=== PATIENT | male | born 2005 | race Caucasian/White ===

== ENCOUNTER 2024-10-25 13:37 | Outpatient (AMB) | payer OTHER, SELFPAY ==
--- NOTE | 2024-10-25 14:03 | A.OFFPC_ITS ---
Vital Signs 10/25/24 14:04 Height 5 ft 9.5 in Weight 257 lb BMI 37.4 BP 120/68 Blood Pressure Location Lt brachial Position Sitting Pulse 76 Pulse Source Pulse Oximeter Temp 97.3 F Temp Source Temporal Artery Scan Pulse Oximetry (%) 97 Oxygen Delivery Method Room Air Intake Visit Reasons: Establish Care Intake Note: Patient is a new patient here to establish care. Transferring care from [facility]. Medical records have been requested and have been received. Switch Crew Supervisor Required: No Accompanied by: Self / Same As Patient Allergies No Known Allergies Allergy (Unverified 10/25/24 14:16) Medication List - Last Reconciled 10/25/24 by KIRAN Vasquez budesonide-formoterol 80-4.5 mcg/actuation (Symbicort) inhalation Tobacco use date assessed: 10/25/24 Dental Screening Dental Screen Date: 10/25/24 Did you have a dental visit in the last 12 months?: No Did you have a dental problem in the last 6 months where you did not have access to dental care?: No HPI Establish Care HPI Details Patient is a 19-year-old male presenting to establish care Previous PCP:[facility] Last visit: over a year ago Last PE: same Specialist: no OBGYN:n/a Past medical history: asthma, ALBERTO Medications: Family HX: Problem: Reports that he had sleep study test done and was dx with ALBERTO:Reports that they took the machine back because he was not using it Per patient he was unable to wear the mask, as he felt like he was be suffocated. The patient reports that he could fall asleep, but could not stay asleep Asthma: reports that this is uncontrolled because he is still having symptoms nightly symptoms occasional during the day with coughing spelss that resolves with resting reports that he was placed and symbicort and was told to take 2 puffs every hours as needed PFSH Medical History ALBERTO (obstructive sleep apnea) Asthma Surgical History No pertinent past surgical history Family History Mother Arthritis Father High cholesterol Social History (Updated 10/25/24 @ 14:12 by Gregoria Chahal [facility]) Household Members Other:: Parents and two sisters Housing: House Alcohol intake: current Alcohol intake frequency: a few times a month Patient Tobacco Use Status: Never used Tobacco e-Cigarette/Vaping Use: Never Used Substance Use Type: Marijuana service: No Current occupational status: employed 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 1. Little interest or pleasure in doing things: not at all 2. Feeling down, depressed, or hopeless: not at all 3. Trouble falling or staying asleep, or sleeping too much: several days 4. Feeling tired or having little energy: several days 5. Poor appetite or overeating: not at all 6. Feeling bad about yourself - or that you are a failure or have let yourself or your family down: not at all 7. Trouble concentrating on things, such as reading the newspaper or watching television: not at all 8. Moving or speaking so slowly that other people could have noticed. Or the opposite - being so fidgety or restless that you have been moving around a lot more than usual: not at all 9. Thoughts that you would be better off or of hurting yourself in some way: not at all Total score: 2 Depression Screening Interpretation: Negative Depression Screening Done: Yes 95178 - PHQ-9 Billing: Yes Source: Developed by Drs. Jah Leyva, Lilly Tran, Won Murphy and colleagues, with an educational juani from [employer]. Thrive Questionnaire Date Thrive assessed: 10/25/24 I am a: Patient What is your living situation today?: I have a steady place to live Within the past 12 months, did the food you bought not last and you didn't have the money to get more?: Never true Within the past 12 months, did you worry whether your food would run out before you got money to buy more?: Never true Do you have trouble paying for medicines?: No Do you have trouble getting transportation to medical appointments?: No Do you have trouble paying your heating and electricity bill?: No Do you have trouble taking care of your child, family member or friend?: No Do you have trouble with day-to-day activities such as bathing, preparing meals, shopping, managing finances, etc.?: No Are you currently unemployed and looking for a job?: No Are you interested in more education?: No Please select the resources that you would like help with: None Currently or been in a relationship where the following occur: No concerns reported THRIVE Score: 0 AUDIT C Alcohol Use Questionnaire (AUDIT-C) 1. How often do you have a drink containing alcohol?: 2-4 times a month 2. How many drinks containing alcohol do you have on a typical day when you are drinking?: 3 or 4 3. How often do you have six or more drinks on one occasion?: Less than monthly Total Score: 4 SHADI-7 AMB Questionnaire SHADI-7 Date SHADI - 7 assessed: 10/25/24 Feeling nervous, anxious, or on edge: 0 = Not at all Not being able to stop or control worryin = Not at all Worrying too much about different things: 0 = Not at all Trouble relaxin = Not at all Being so restless that it is hard to sit still: 0 = Not at all Becoming easily annoyed or irritable: 0 = Not at all Feeling afraid as if something awful might happen: 0 = Not at all Total SHADI-7 score (0-4 normal; 5-9 mild; 10-14 moderate; 15-21 severe): 0 Source: Developed by Drs. Jah Leyva, Lilly Tran, Won Murphy and colleagues, with an educational juani from [employer]. SHADI-7 Assessment Billing SHADI-7 Assessment Tool: SHADI-7 Assessment 62264 Review of Systems Const Denies headache(s) Eyes Denies loss of vision ENT Denies vertigo, Denies dizziness, Denies headache(s) and Denies sore throat Card Denies chest pain, Denies leg edema, Denies lightheadedness and Reports dyspnea (Intermittently) Resp Denies cough, Denies hemoptysis, Reports dyspnea (Intermittently) and Reports wheezing (Intermittently) GI Denies abdominal pain, Denies melena, Denies constipation, Denies diarrhea and Denies vomiting Denies dysuria, Denies urinary frequency and Denies urinary urgency Musc Denies arthralgias, Denies joint swelling, Denies numbness and Denies tingling Neuro Denies Abnormal speech present, Denies behavioral changes, Denies vertigo, Denies dizziness, Denies headache(s), Denies loss of vision, Denies memory loss, Denies numbness and Denies tingling Psych Denies anxiety, Denies behavioral changes, Denies depression, Denies memory loss and Denies panic attacks Rashaun/Lymph Denies easy bleeding and Denies easy bruising Aller/Immun Reports wheezing (Intermittently) Physical exam (Primary Care) Vital Signs: Last Vital Signs Temp 97.3 F 10/25/24 14:04 Pulse 76 10/25/24 14:04 BP 120/68 10/25/24 14:04 Pulse Ox 97 10/25/24 14:04 Oxygen Delivery Method Room Air 10/25/24 14:04 BMI result Body Mass Index 37.4 Tobacco/Smoking Status: Tobacco use Status Tobacco use date assessed 10/25/24 10/25/24 14:14 Patient Tobacco Use Status Never used Tobacco 10/25/24 14:14 e-Cigarette/Vaping Use Never Used 10/25/24 14:14 PHQ-9: PHQ-9 Score PHQ-9: Total score 2 10/25/24 14:23 Depression Screening Interpretation: Negative Thrive Assessment: Date of Thrive Assessment Date Thrive assessed 10/25/24 10/25/24 14:14 Currently or been in a relationship where the following occur: No concerns reported Const General: healthy appearing, no acute distress, alert and awake Nutritional Appearance: well nourished Orientation/consciousness: oriented to person, oriented to place and oriented to time [facility] Ears: TM's normal bilaterally General nose exam: Abnormal mucous membranes and turbinates present boggy and erythematous and Nasal discharge present purulent on the right Mouth: Normal oral and palatal mucosa present Throat: Yes posterior oropharynx normal Eyes Conjunctivae: conjunctivae normal Sclerae: sclerae normal Pupils: Equal, round and reactive pupils present Neck Neck: Yes no lymphadenopathy and Yes no JVD Thyroid: Thyroid normal Carotids: no bruits Resp Effort & Inspection: normal respiratory effort and not tachypneic Auscultation: no crackles, no rales, no rhonchi and no wheezes Cardio Rate: regular rate Rhythm: regular rhythm Heart sounds: no murmurs and normal S1 and S2 GI Palpation (GI): Soft to palpation, nontender, no hepatomegaly and no splenomegaly Auscultation: normal bowel sounds Skin General skin exam: no rashes or lesions noted and dry skin Neuro General: oriented to person, oriented to place and oriented to time Cranial nerves: Yes Equal, round and reactive pupils present Speech: No Abnormal speech present Gait exam (Neuro): Normal gait present Motor exam (neuro): no tremor noted Extrem Right upper extremity: full ROM Left upper extremity: full ROM Right lower extremity: full ROM; no edema Left lower extremity: full ROM; no edema Psych Mental Status: mental status grossly normal Speech and movement: Normal speech and movement present Affect: normal affect Attitude: cooperative Thought process: Normal thought process present Coding Level of Care Code New Pt Level 4 (10880) Diagnoses ALBERTO (obstructive sleep apnea) G47.33 Moderate persistent asthma, unspecified whether complicated J45.40 Asthma severity: moderate Asthma persistence: persistent Asthma complication type: unspecified Rhinosinusitis J32.9 Nasal congestion R09.81 Additional Codes SHADI-7 Assessment Billing - SHADI-7 Assessment Tool: SHADI-7 Assessment 10398 ([id number]) PHQ-9 - 70637 - PHQ-9 Billing: Yes ([id number]) Time Spent (min) 42 Assessment & Plan Assessment & Plan (1) ALBERTO (obstructive sleep apnea): Code(s): G47.33 - Obstructive sleep apnea (adult) (pediatric) Category: Medical Plan: Reports that he was diagnosed and but could not tolerate wearing the mask and his machine was taken away. Will refer the patient to pulmonology to further evaluate (2) Asthma: Code(s): J45.909 - Unspecified asthma, uncomplicated Category: Medical Qualifiers: Asthma severity: moderate Asthma persistence: persistent Asthma complication type: unspecified Qualified Code(s): J45.40 - Moderate persistent asthma, uncomplicated Plan: The patient is currently on symbicort 2 puffs every 4 hours as needed. Albuterol sulfate 90 mcg/actuation 2 puffs 4-6 hours p.r.n. was ordered in order to see if the patient could cut down the use of the symbicort. Will refer the patient to pulmonology (3) Rhinosinusitis: Code(s): J32.9 - Chronic sinusitis, unspecified Category: Medical Plan: Augmentin 1 tab b.i.d. times 10 days and fluticasone propionate 50 mcg/actuation 2 sprays intranasally daily p.r.n. patient to contact office his symptoms isn't getting better or worsens (4) Nasal congestion: Code(s): R09.81 - Nasal congestion Category: Medical Plan: Fluticasone propionate 50 mcg/actuation 2 sprays intranasally daily p.r.n. ordered. Discussed with the patient and that he could use an antihistamine OTC like Zyrtec or Claritin daily as needed Orders: Orders 2 Complete Blood Count Auto Diff 10/25/24 Z00.00 - Encounter for general adult medical examination without abnormal findings Lipid Panel 10/25/24 Z. - Encounter for general adult medical examination without abnormal findings Vitamin D 25-OH Total 10/25/24 Z. - Encounter for general adult medical examination without abnormal findings Glucose Fasting 10/25/24 Z00. - Encounter for general adult medical examination without abnormal findings Comprehensive [place]. Panel Fast 10/25/24 Z00. - Encounter for general adult medical examination without abnormal findings UA CC w/rflx Micro + Cult 10/25/24 Z00.00 - Encounter for general adult medical examination without abnormal findings TSH reflex Free T4 10/25/24 Z00.00 - Encounter for general adult medical examination without abnormal findings Medications: New albuterol sulfate 90 mcg/actuation (Ventolin HFA) 2 puffs inhalation Q4-6H PRN 8.5 grams 3RF shortness of breath or wheezing J45.909 - Unspecified asthma, uncomplicated fluticasone propionate 50 mcg/actuation administer into each nostril 2 sprays intranasal DAILY PRN 16 grams 3RF allergy symptoms R09.81 - Nasal congestion amoxicillin-pot clavulanate 875-125 mg 1 tab PO BID 20 tabs 0RF 10 days J32.9 - Chronic sinusitis, unspecified
[2024-10-25 14:04] VITALS: BP 120/68; PULSE 76; TEMP 36.3; O2SAT 97; BMI 37.4
== END 2024-10-25 14:50 | disposition home or self-care (01) ==
LOC: HO.HMCH 13:38
PROVIDERS: PCP Pediatrics
DX: G47.33 Obstructive sleep apnea (adult) (pediatric) (principal); J45.40 Moderate persistent asthma, uncomplicated; J32.9 Chronic sinusitis, unspecified; R09.81 Nasal congestion

== ENCOUNTER → 2024-10-25 13:37 | Outpatient (BNVA) | payer OTHER, SELFPAY | PROVIDERS: PCP Pediatrics | DX: J45.40 Moderate persistent asthma, uncomplicated (principal); G47.33 Obstructive sleep apnea (adult) (pediatric); J32.9 Chronic sinusitis, unspecified; R09.81 Nasal congestion | CPT/HCPCS: 96127; 99202 ==

== ENCOUNTER 2024-12-07 07:51 | Outpatient (REF) | payer OTHER, SELFPAY ==
--- OUTSIDE RECORDS SUMMARY | 2024-12-07 07:57 | XMS_ITS | Encounter Summary ---
Author Organization [facility] Address [address] [place] [address] Phone Care Team Providers Care Dental Appliance Repairer Name Role Phone Provider, Ravindra LINDSAY Primary Care Provider Encounter Details Date Type Department Care Team (Late st Contact Info) Description 08/10/2016 Documentation [facility] [place] [address] [place], [place] [id number] Family Medicine, Physician [address] [place] [address] Social History Tobacco Use Types Packs/Day Years Used Date Smoking Tobacco: Never Assessed Sex and Gender Information Value Date Recorded Sex Assigned at Male 11/12/2019 10:41 AM EDT Legal Sex Male 5:04 PM EDT Gender Identity Male 11/12/2019 10:41 AM EDT Sexual Orientation Straight 11/12/2019 10 :41 AM EDT documented as of this encounter Plan of Treatment Not on file documented as of this encounter Visit Diagnoses Not on filedocumented in this encounter Care Teams Dental Appliance Repairer Relationship Specialty Start Date End Date Provider, MD Ravindra [address] [place] [phone] PCP - General Pediatrics 01/26/24 07/23/24 documented as of this encounter
--- OUTSIDE RECORDS SUMMARY | 2024-12-07 07:57 | XMS_ITS | Encounter Summary ---
Author Organization [facility] Address [address] [place] [address] Phone Care Team Providers Care Truck Service Technician Name Role Phone Provider, Ravindra LINDSAY Primary Care Provider [phone] Encounter Details Date Type Department Care Team (Late st Contact Info) Description 07/26/2016 Documentation [facility] [place] [address] [place], [place] [phone] Family Medicine, Physician [address] [place] [address] Social History Tobacco Use Types Packs/Day Years [...] on filedocumented in this encounter Care Teams Truck Service Technician Relationship Specialty Start Date End Date Provider, MD Ravindra [address] [place] [phone] PCP - General Pediatrics 01/26/24 07/23/24 documented as of this encounter
--- OUTSIDE RECORDS SUMMARY | 2024-12-07 07:57 | XMS_ITS | Encounter Summary ---
Author Organization [facility] Address [address] [place] [address] Phone Care Team Providers Care Rug Cleaner Name Role Phone Provider, Ravindra LINDSAY Primary Care Provider [phone] Encounter Details Date Type Department Care Team (Late st Contact Info) Description 09/01/2016 [place] [facility] [place] [address] [place], [place] [id number] Family Medicine, Physician [address] [place] [address] Social History Tobacco Use Types Packs/Day Years [...] on filedocumented in this encounter Care Teams Rug Cleaner Relationship Specialty Start Date End Date Provider, MD Ravindra [address] [place] [phone] PCP - General Pediatrics 01/26/24 07/23/24 documented as of this encounter
--- OUTSIDE RECORDS SUMMARY | 2024-12-07 07:57 | XMS_ITS | Encounter Summary ---
Author Organization [facility] Address [address] [place] [address] Phone Care Team Providers Care Elevator Examiner And Adjuster Name Role Phone Provider, Ravindra LINDSAY Primary Care Provider [phone] Encounter Details Date Type Department Care Team (Late st Contact Info) Description 03/23/2017 Conversion Encounter [facility] [address] [place] [address] Social History Tobacco Use Types Packs/Day Years [...] on filedocumented in this encounter Care Teams Elevator Examiner And Adjuster Relationship Specialty Start Date End Date Provider, MD Ravindra [address] [place] [phone] PCP - General Pediatrics 01/26/24 07/23/24 documented as of this encounter
--- OUTSIDE RECORDS SUMMARY | 2024-12-07 07:57 | XMS_ITS | Encounter Summary ---
Author Organization [facility] Address [address] [place] [address] Phone Care Team Providers Care Merchant Tailor Name Role Phone Provider, Ravindra LINDSAY Primary Care Provider [phone] Encounter Details Date Type Department Care Team (Late st Contact Info) Description 07/09/2015 Documentation [facility] Family Medicine [address] [place], [place] [phone] Family Medicine, Physician [address] [place] [address] Social History Tobacco Use Types Packs/Day Years [...] on filedocumented in this encounter Care Teams Merchant Tailor Relationship Specialty Start Date End Date Provider, MD Ravindra [address] [place] [phone] PCP - General Pediatrics 01/26/24 07/23/24 documented as of this encounter
--- OUTSIDE RECORDS SUMMARY | 2024-12-07 07:57 | XMS_ITS | Encounter Summary ---
Author Organization [facility] Address [address] [place] [address] Phone Care Team Providers Care Reception Specialist Name Role Phone Provider, Ravindra LINDSAY Primary Care Provider [phone] Encounter Details Date Type Department Care Team (Late st Contact Info) Description 12/25/2009 [place]ation [facility] [place] [address] [place], [place] [phone] Family Medicine, Physician [address] [place] [address] Social History Tobacco Use Types Packs/Day Years [...] on filedocumented in this encounter Care Teams Reception Specialist Relationship Specialty Start Date End Date Provider, MD Ravindra [address] [place] [phone] PCP - General Pediatrics 01/26/24 07/23/24 documented as of this encounter
--- OUTSIDE RECORDS SUMMARY | 2024-12-07 07:57 | XMS_ITS | Clinical Summary ---
Author Organization [facility] Address [address] [place] [address] Phone Care Team Providers Care Battery Charger Tester Name Role Phone Unavailable Primary Care Provider Unavailabl e Allergies No known active allergies Medications loratadine 10 MG tabletIndications:Seas onal and perennial allergic rhinoconjunctivitis of both eyes TAKE 1 TABLET BY MOUTH EVERY DAY 30 tablet 3 04/25/20 22 Active Additional Information Patient not taking.Reported on 08/02/2023 Spacer/Aero-Holding Chambers (AeroChamber Plus) inhalerIndications:Mil d intermittent asthma with acute exacerbation Use with metered dose inhaler as directed. 1 each 1 07/09/20 22 Active fluticasone 50 MCG/ACT nasal sprayIndications:Seaso nal and perennial allergic rhinoconjunctivitis of both eyes Administer 1 spray into each nostril daily. 1 mL 5 02/17/20 23 Active Additional Information Patient not taking.Reported on 07/11/2023 albuterol HFA 108 (90 Base) MCG/ACT inhalerIndications:Mil d intermittent asthma with acute exacerbation Inhale 2 puffs every 4 (four) hours as needed for wheezing or shortness of breath. 1 Units 04/06/20 23 Active Additional Information Patient not taking.Reported on 07/11/2023 montelukast (Singulair) 10 MG tabletIndications:Mode rate persistent asthma without complication Take 1 tablet (10 mg total) by mouth nightly. 30 tablet 3 05/10/20 23 Active cholecalciferol 50 MCG (2000 UT) capsuleIndications:Vit slaughter D deficiency TAKE 1 CAPSULE BY MOUTH DAILY. 90 capsule 05/23/20 23 Active Symbicort 80-4.5 MCG/ACT inhalerIndications:Mod erate persistent asthma without complication INHALE 2 PUFFS TWICE A DAY RINSE MOUTH WITH WATER AFTER USE. DO NOT SWALLOW 1 Units 3 05/23/20 24 Active Active Problems Problem Noted Date Diagnosed Date Obstructive sleep apnea 12/27/2023 Overview (12/27/2023): Seen by sleep med - abnormal sleep study, started on CPAP 12/28. Seasonal and perennial aller gic rhinoconjunctivitis of both eyes 11/12/2021 Atopic dermatitis 10/16/2017 Overview (11/12/2019): No recent issues with eczema, has topical prep at home to use if Needed. Moderate persistent asthma without complication 10/06/2016 Overview (11/12/2019): Compliant with Flovent. No recent need for albuterol Assessment & Plan (01/31/2022 2:07 PM EDT): Occ need for albuterol Assessment & Plan (11/12/2021 7:54 PM EDT): Off Flovent for long time but with regular nocturnal symptoms in past month with spring allergy symptoms, so resume Flovent for now while antihistamine rx initiated. F/up with PCP Assessment & Plan (09/17/2017 9:40 AM EST): Still with some asthma symptoms, and need steroid, should be on controller, will start Assessment & Plan (09/11/2017 12:43 PM EST): Jonathan has a history of asthma but has not needed in meds in over 2 years. He is here today with his sister - both with URI, cough and wheezing. Jonathan has not needed albuterol in a few years. He used his sisters via the [employer] machine last night. He did not sleep well 2nd to cough. Albuterol given in the office x 2 was helpful. PRed 60 mg given here and to be given daily for 4 more days. Follow up with Dr Lam in 2-3 days, sooner as needed. Childhood obesity 02/16/2010 Assessment & Plan (09/17/2017 9:42 AM EST): May make asthma worse. Discuss with Dr. Lam at check up Resolved Problems Problem Noted Date Diagnosed Date Resolved Date Right-sided chest wall pain 11/12/2021 01/31/2022 Overview (11/12/2021): suspect possible hairline rib fracture- suggest ibuprofen 800mg with food BID and sleep on other side or with pillow support Personal history of COVID-19 11/12/2021 02/16/2023 Overview (11/12/2021): Mild illness 08/2021- full recovery Encounters Date Type Department Care Team Description 10/10/2024 Telephone [facility] [address] [place], [place] [id number] Jazmine Mendes MD Medical Records 09/29/2024 Refill [facility] [address] [place], [place] [phone] So Napier MD Moderate persistent asthma without complication from Last 3 Months Immunizations Immunization Administration Dates Next Due COVID-19 Pfizer, alireza-sucros e, 12+ years 01/31/2022 DTaP 5 12/27/2007, 5,01/13/2004,11/11,2003 H1N1 08/04/2009,06/16/2009 HPV Vaccine 9 Valent 03/24/2015 HPV, Quadrivalent 11/21/2014,10/03/2014 Hep A, ped/adol 10/03/2014,03/14/2011 Hep B, ped/adol 01/13/2004,2003,2003 Hib (PRP-T) 10/19/2004,2003,2003 IPV 01/12/2009, 4,2003,08/30 Influenza Split 06/06/2013, 2,05/02/2011,04/23 Influenza, injectable, quadrivalent 07/08/2015 Influenza, injectable, quadr ivalent, preservative free 04/19/2023,08/03/2022,04/29/2021,04/24,04/10/2019,06/12/2018,05/29/2017 ,04/18/2016,04/21/2014 Influenza, injectable, trivalent 04/27/2009,06/08,05/30/2006 MMR 12/27/2007,07/05/2004 Meningococcal Conj (Menactra) MCV4P 11/12/2019,0 03/24/2015 Pneumococcal Conjugate 10/19/2004,2003,2003,08/29 Tdap 10/03/2014 Varicella 01/06/2009,07/05/2004 Family History Medical History Relation Name Comments Hyperlipidemia Father jonathan Obesity Father jonathan Diabetes Maternal Grandfather Hyperlipidemia Maternal Grandfather Hypertension Maternal Grandfather Anxiety disorder Mother zoriada Asthma Mother zoriada Depression Mother zoriada Obesity Mother zoriada Thyroid disease Other 1 Asthma Sister 1 davida Asthma Sister 2 norangeli Relation Name Status Comments Father jonathan Alive Father: Hyperli pidemia Maternal Grandfather Mother sharonridenita Alive Mother: Asthma Other 1 Close relative: Obesity Other 2 Family history of Diabetes mellitus, Family history of Migraines Sister 1 davida Alive Sister: Alive a nd well, Asthma Sister 2 norangeli Alive Social History Tobacco Use Types Packs/Day Years Used Date Smoking Tobacco: Never Smokeless Tobacco: Never Tobacco Cessation:Counseling Given: Yes Alcohol Use Standard Drinks/Week Comments Never 0 (1 standard drink = 0.6 oz pur e alcohol) rare ETOH in the past. Hunger/Food Answer Date Recorded In the last 12 months, did y ou or your family ever eat less than you felt you should because there wasn't enough money for food? No 02/15/2023 Stable Housing Answer Date Recorded Are you worried that in the next 2 months you may not have stable housing? No 02/15/2023 Transportation Concerns Answer Date Rec orded In the last 12 months, have you or your family ever had to go without healthcare because you didn't have a way to get there? No 02/15/2023 Hazards in Home Answer Date Recorded Think about the place you li ve. Do you have problems with any of the following? Pests (mice or roaches), mold, no/not working smoke detectors, water leaks, no window guards. No 2022 Financing Utilities Answer Date Recorde d In the last 12 months, has t he electric, gas, oil, or water company threatened to shut off your services in your home? No 02/15/2023 Safety at Home Answer Date Recorded Are you or your family worried about feeling saf e in your home? No 02/15/2023 Outside Support Answer Date Recorded Do you feel that you need mo re support from other people or programs to help you care for yourself or your family? No 02/15/2023 Understanding Health Concerns Answer Da te Recorded Do you need help understandi ng your or your child's healthcare needs (diagnosis, medications, plan, etc.)? No 02/15/2023 Financing Health Concerns Answer Date R ecorded In the last 12 months, was t here a time when your child needed to see a doctor or get medications or supplies but could not because of cost? No 02/15/2023 Missing School or Work Answer Date Jeffy rded Did you or your child miss s chool or work because of a health problem that could have been avoided? No 02/15/2023 Sex and Gender Information Value Date Recorded Sex Assigned at Male 11/12/2019 10:41 AM EDT Legal Sex Male 5:04 PM EDT Gender Identity Male 11/12/2019 10:41 AM EDT Sexual Orientation Straight 11/12/2019 10 :41 AM EDT Last Filed Vital Signs Vital Sign Reading Time Taken Comments Blood Pressure 137/88 08/02/2023 2:44 PM EST Pulse 98 08/02/2023 2:44 PM EST Temperature 36.7 ??C (98.1 ??F) 08/02/2023 2:44 PM ES T Respiratory Rate 24 08/14/2018 9:24 AM EST Oxygen Saturation 97% 11/12/2021 4:34 PM EDT Inhaled Oxygen Concentration - - Weight 120 kg (263 lb 12.8 oz) 08/02/2023 2:44 P M EST Height 175.3 cm (5' 9 ) 02/16/2023 10:34 AM EDT Body Mass Index 38.96 02/16/2023 10:34 AM EDT Plan of Treatment Health Maintenance Due Date Last Done Comments Men B Vaccine (1 of 2 - Standard) 2019 Influenza Vaccines (#1) 2024 04/19/20, 08/03/2022, 04/29/2021, Additional history exists COVID-19 Vaccine (4 - 2023-2 5 season) 2024 01/31/2022, 12/29/2020, 12/08/2020 DTaP,Tdap,and Td Vaccines (7 - Td or Tdap) 10/03/2024 10/03/2014, 12/27/2007, 10/19/2004, Additional history exists Hepatitis B Vaccines Completed 01/13/2004, 2003, 2003 HIB Vaccines Completed 10/19/2004, 02/2004, 2003 Pneumococcal Vaccine Completed 10/19/2004, 01/13/2004, 2003, Additional history exists MMR Vaccines Completed 12/27/2007, 07/05/2004 Varicella Vaccines Completed 01/06/2009, 07/05/2004 IPV Vaccines Completed 01/12/2009, 03/2004, 2003, Additional history exists Hepatitis A Vaccines Completed 10/03/2014, 03/14/20 11 HPV Vaccines Completed 03/24/2015, 11/05, 10/03/2014 Meningococcal Vaccine Completed 11/12/2019, [address] [place] [address] NON PCC Member Subscriber Plan / Payer (Ef fective 2017-Present) Name:Jonathan Pappas Relation to Subscriber:Self Name:Jonathan Pappas Payer ID:Not on file Group ID:Not on file Type:Medicaid Address: [address] [facility] [place] Address: [facility] [address] [place] [address]
--- OUTSIDE RECORDS SUMMARY | 2024-12-07 07:57 | XMS_ITS | Encounter Summary ---
Author Organization [facility] Address [address] [place] [address] Phone Care Team Providers Care Councilor Name Role Phone Provider, Ravindra LINDSAY Primary Care Provider [phone] Reason for Visit * Reason Onset Date Comments Med Refill 12/21/2020 Encounter Details Date Type Department Care Team (Late st Contact Info) Description 12/21/2020 Refill [facility] [address] [place] [address] Brandon Lam MD [address] [place] [address] Mild persistent asthma without complication Social History Tobacco Use Types Packs/Day Years Used Date Smoking Tobacco: Never Smokeless Tobacco: Never Alcohol Use Standard Drinks/Week Comments Never 0 (1 standard drink = 0.6 oz pur e alcohol) Hunger/Food Answer Date Recorded In the last 12 months, did y ou or your family ever eat less than you felt you should because there wasn't enough money for food? No 11/17/2020 Stable Housing Answer Date Recorded Are you worried that in the next 2 months you may not have stable housing? No 11/17/2020 Transportation Concerns Answer Date Rec orded In the last 12 months, have you or your family ever had to go without healthcare because you didn't have a way to get there? No 11/17/2020 Hazards in Home Answer Date Recorded Think about the place you li ve. Do you have problems with any of the following? Pests (mice or roaches), mold, no/not working smoke detectors, water leaks, no window guards. No 2020 Financing Utilities Answer Date Recorde d In the last 12 months, has t he electric, gas, oil, or water company threatened to shut off your services in your home? No 11/17/2020 Safety at Home Answer Date Recorded Are you or your family worried about feeling saf e in your home? No 11/17/2020 Outside Support Answer Date Recorded Do you feel that you need mo re support from other people or programs to help you care for yourself or your family? No 11/17/2020 Understanding Health Concerns Answer Da te Recorded Do you need help understandi ng your or your child's healthcare needs (diagnosis, medications, plan, etc.)? No 11/17/2020 Financing Health Concerns Answer Date R ecorded In the last 12 months, was t here a time when your child needed to see a doctor or get medications or supplies but could not because of cost? No 11/17/2020 Missing School or Work Answer Date Jeffy rded Did you or your child miss s chool or work because of a health problem that could have been avoided? No 11/17/2020 Sex and Gender Information Value Date Recorded Sex Assigned at Male 11/12/2019 10:41 AM EDT Legal Sex Male 5:04 PM EDT Gender Identity Male 11/12/2019 10:41 AM EDT Sexual Orientation Straight 11/12/2019 10 :41 AM EDT documented as of this encounter Plan of Treatment Not on file documented as of this encounter Visit Diagnoses Diagnosis Mild persistent asthma without complication documented in this encounter Care Teams Councilor Relationship Specialty Start Date End Date Provider, MD Ravindra [address] [place] [phone] PCP - General Pediatrics 01/26/24 07/23/24 documented as of this encounter
--- OUTSIDE RECORDS SUMMARY | 2024-12-07 07:57 | XMS_ITS | Encounter Summary ---
Author Organization [facility] Address [address] [place] [address] Phone Care Team Providers Care Plastic Joint Maker Name Role Phone Provider, Ravindra LINDSAY Primary Care Provider [phone] Encounter Details Date Type Department Care Team (Late st Contact Info) Description 05/14/2013 Documentation [facility] [place] Family Medicine [address] [place], [place] [phone] Family Medicine, Physician [address] [place] [address] Social History Tobacco Use Types Packs/Day Years [...] on filedocumented in this encounter Care Teams Plastic Joint Maker Relationship Specialty Start Date End Date Provider, MD Ravindra [address] [place] [phone] PCP - General Pediatrics 01/26/24 07/23/24 documented as of this encounter
--- OUTSIDE RECORDS SUMMARY | 2024-12-07 07:57 | XMS_ITS | Encounter Summary ---
Author Organization [facility] Address [address] [place] [address] Phone Care Team Providers Care Firing Pin Gauger Name Role Phone Provider, Ravindra LINDSAY Primary Care Provider [phone] Reason for Visit * Reason Comments Med Refill Encounter Details Date Type Department Care Team (Late st Contact Info) Description 09/10/2018 Refill [facility] [place] [address] [place] [address] Brandon Lam MD [address] [place] [address] Mild intermittent asthma with acute exacerbation Social History Tobacco Use Types Packs/Day Years Used Date Smoking Tobacco: Never Smokeless Tobacco: Never Alcohol Use Standard Drinks/Week Comments No 0 (1 standard drink = 0.6 oz pur e alcohol) Sex and Gender Information Value Date Recorded Sex Assigned at Male 11/12/2019 10:41 AM EDT Legal Sex Male 5:04 PM EDT Gender Identity Male 11/12/2019 10:41 AM EDT Sexual Orientation Straight 11/12/2019 10 :41 AM EDT documented as of this encounter Miscellaneous Notes * Telephone Encounter - Ava Guillory LPN - 09/10/2018 11:31 AM EST Refill request for Proair- I left a message for mom to call to see if refill needed. It was just ordered less than a month ago./MAGGIE documented in this encounter Plan of Treatment Not on file documented as of this encounter Visit Diagnoses Diagnosis Mild intermittent asthma with acute exacerbation documented in this encounter Care Teams Firing Pin Gauger Relationship Specialty Start Date End Date Provider, MD Ravindra [address] [place] [phone] PCP - General Pediatrics 01/26/24 07/23/24 documented as of this encounter
--- OUTSIDE RECORDS SUMMARY | 2024-12-07 07:57 | XMS_ITS | Encounter Summary ---
Author Organization [facility] Address [address] [place] [address] Phone Care Team Providers Care Clay Miner Name Role Phone Provider, Ravindra LINDSAY Primary Care Provider [phone] Encounter Details Date Type Department Care Team (Late st Contact Info) Description 05/14/2013 Documentation [facility] [place] [address] [place], [place] [phone] Family Medicine, Physician [address] [place] [address] Social History Tobacco Use Types Packs/Day Years [...] on filedocumented in this encounter Care Teams Clay Miner Relationship Specialty Start Date End Date Provider, MD Ravindra [address] [place] [phone] PCP - General Pediatrics 01/26/24 07/23/24 documented as of this encounter
--- OUTSIDE RECORDS SUMMARY | 2024-12-07 07:57 | XMS_ITS | Encounter Summary ---
Author Organization [facility] Address [address] [place] [address] Phone Care Team Providers Care Manufacturing Area Manager Name Role Phone Unavailable Primary Care Provider Unavailabl e Reason for Visit * Reason Comments Med Refill Encounter Details Date Type Department Care Team ([facility] st Contact Info) Description 09/29/2024 Refill [facility] [address] [place] [address] So Napier MD [address] [place] [address] Moderate persistent asthma without complication Social History Tobacco [...] Telephone Encounter - Ava Guillory LPN - 09/29/2024 12:07 PM EST No longer our patient documented in this encounter Plan of Treatment Not on file documented as of this encounter Visit Diagnoses Diagnosis Moderate persistent asthma without complication documented in this encounter
[2024-12-07 08:33] LABS: MANUAL DIFF FLAG NO
[2024-12-07 08:58] LABS: Basophils Percent Auto 0.7 % (0-2); Eosinophils Absolute Auto 0.5 X10*3/uL (0.0-0.4); Eosinophils Percent Auto 7.3 % (0-4); Hematocrit 46.9 % (42.0-52.0); Hemoglobin 16.1 g/dl (14.0-18.0); Imm Gran Abs Auto 0.01 X10*3/uL (0.00-0.03); Imm Gran Pct Auto 0.2 % (0.0-0.4); Lymphocytes Absolute Auto 2.3 X10*3/uL (1.2-4.9); Mean Corpuscular HGB Conc 34.3 g/dl (31.0-36.0); Mean Corpuscular Hemoglobin 30.9 pg (27.0-33.0); Mean Platelet Volume 9.8 fL (9.4-12.4); Monocytes Absolute Auto 0.4 X10*3/uL (0.1-1.2); Monocytes Percent Auto 7.2 % (2-11); Neutrophils Absolute Auto 2.9 x10*3/uL (2.0-8.3); Neutrophils Percent Auto 47.6 % (45-73); Platelet Count 240 X10*3/uL (160-400); Red Blood Count 5.21 X10*6/uL (4.60-5.80); Red Cell Distribution Width 12.5 % (11.0-16.0); White Blood Count 6.1 X10*3/uL (4.8-10.8)
[2024-12-07 09:22] LABS: Glucose Fasting 92 mg/dL (60-99)
[2024-12-07 09:34] LABS: Alanine Aminotransferase 21 U/L (0-40); Albumin Level 4.3 g/dL (3.5-5.0); Alkaline Phosphatase 57 U/L (39-117); Anion Gap 13 (12-20); Aspartate Amino Transferase 18 U/L (5-37); Bilirubin Total 0.6 mg/dL (0.0-1.0); Blood Urea Nitrogen 9 mg/dL (9-16); Calcium 9.6 mg/dL (8.4-10.2); Carbon Dioxide 24 mmol/L (22-29); Chloride 109 mmol/L (96-108); Cholesterol 142 mg/dL (<200); Estimated Glomerular Filt Rate > 60; Glucose Fasting 94 mg/dL (60-99); HDL Cholesterol 33 mg/dL (>40); LDL Cholesterol Calculated 95 mg/dL (<100); Potassium 4.4 mmol/L (3.3-5.1); Sodium 142 mmol/L (135-145); Total Protein 7.1 g/dL (6.5-8.0); Triglycerides 71 mg/dL (<150)
[2024-12-07 09:41] LABS: TSH reflex Free T4 2.36 uIU/mL (0.32-4.0); Vitamin D 25-OH Total 12.1 ng/mL (>30)
[2024-12-07 09:41] LABS: Appearance Urine Clear; Color Urine Yellow; Glucose Urine UA Negative (Negative); Leukocyte Esterase Urine Negative (Negative); Nitrite Urine Negative (Negative); Urine Blood Negative (Negative); Urine Ketones Negative (Negative); Urine Protein Negative (Neg-Trace)
== END 2024-12-07 07:52 | disposition home or self-care (01) ==
LOC: HO.LAB 07:51
DX: Z00.00 Encounter for general adult medical examination without abnormal findings (principal)
CPT/HCPCS: 36415; 80053; 80061; 81003; 82306; 82947; 84443; 85025

== ENCOUNTER 2024-12-13 15:52 | Outpatient (AMB) | payer OTHER, SELFPAY ==
[2024-12-13 15:57] VITALS: BP 106/62; PULSE 106; RESP 20; TEMP 37.1; O2SAT 96; BMI 37.8
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
== END 2024-12-13 16:37 | disposition home or self-care (01) ==
LOC: HO.HMCH 15:53
DX: Z23 Encounter for immunization (principal)

== ENCOUNTER → 2024-12-13 15:52 | Outpatient (BNVA) | payer OTHER, SELFPAY | DX: Z00.00 Encounter for general adult medical examination without abnormal findings (principal); J45.40 Moderate persistent asthma, uncomplicated; G47.33 Obstructive sleep apnea (adult) (pediatric); E55.9 Vitamin D deficiency, unspecified; R10.11 Right upper quadrant pain; Z23 Encounter for immunization | CPT/HCPCS: 90471; 90715; 96160; 99395 ==

== ENCOUNTER 2025-01-28 09:24 | Outpatient (REF) | payer OTHER, SELFPAY ==
--- NOTE | ~2025-01-28 | US_ITS ---
CLINICAL HISTORY: R10.11 - Right upper quadrant pain US abdomen limited Comparison: None provided Findings: The visualized pancreas is normal. The aorta and inferior vena cava are normal caliber. Liver is slightly enlarged measuring 17.9 cm. Normal echogenicity. No focal lesion. There is no intrahepatic bile duct dilatation. The common duct is 4.0 mm in diameter. The gallbladder is normal. There is no sonographic Dominguez sign. The main portal vein is antegrade. The right kidney is 10.9 cm in length. No ascites. IMPRESSION: 1. Normal limited abdominal ultrasound. 2. Mild hepatomegaly. This document has been electronically signed by: Chloe Willard MD on 01/28/2025 22:50:22
--- OUTSIDE RECORDS SUMMARY | 2025-01-28 10:02 | XMS_ITS | Encounter Summary ---
Author Organization [facility] Address [address] [place] [address] Phone Care Team Providers Care Nurse Practitioner Physicians Assistant Name Role Phone Provider, Ravindra LINDSAY Primary Care Provider [phone] Encounter Details Date Type Department Care Team (Late st Contact Info) Description 07/09/2015 Documentation [facility] [place] Family Medicine [address] [place], [place] [id number] Family Medicine, Physician [address] [place] [address] Social History Tobacco Use Types Packs/Day Years [...] on filedocumented in this encounter Care Teams Nurse Practitioner Physicians Assistant Relationship Specialty Start Date End Date Provider, MD Ravindra [address] [place] [id number] PCP - General Pediatrics 01/26/24 07/23/24 documented as of this encounter
== END 2025-01-28 09:25 | disposition home or self-care (01) ==
LOC: HO.US 09:24
DX: R10.11 Right upper quadrant pain (principal)
CPT/HCPCS: 76705

== ENCOUNTER → 2025-01-28 09:26 | Outpatient (BNV) | payer OTHER, SELFPAY | PROVIDERS: Visit Provider Student in an Organized Health Care Education/Training Program | DX: R10.11 Right upper quadrant pain (principal) | CPT/HCPCS: 76705 ==

== ENCOUNTER 2025-02-13 08:58 | Outpatient (REF) | payer OTHER, SELFPAY ==
--- NOTE | ~2025-02-13 | XR_ITS ---
EXAMINATION: XR FINGER, LEFT CLINICAL INFORMATION: S69.92XA - Unspecified injury of left wrist, hand and finger(s), initial... COMPARISON: None available. TECHNIQUE: Three views of the left fifth digit. FINDINGS: The bones and soft tissues are normal. No fracture. Alignment is anatomic. Joint spaces are maintained. XR/XR finger LT min 2V IMPRESSION: Normal finger radiographs. Electronically signed by: Adrian Fuentes MD 02/13/2025 09:41 AM EDT
== END 2025-02-13 08:59 | disposition home or self-care (01) ==
LOC: HO.HMGCX 08:58
PROVIDERS: Visit Provider Physician Assistant
DX: S69.92XA Unspecified injury of left wrist, hand and finger(s), initial encounter (principal); X58.XXXA Exposure to other specified factors, initial encounter; Y93.9 Activity, unspecified; Y92.9 Unspecified place or not applicable; Y99.9 Unspecified external cause status
CPT/HCPCS: 73140; 99212

== ENCOUNTER 2025-02-13 08:58 | Outpatient (AMB) | payer OTHER, SELFPAY ==
[2025-02-13 09:09] VITALS: BP 106/62; PULSE 83; TEMP 36.7; O2SAT 97; BMI 37.5
--- NOTE | 2025-02-13 09:09 | MHC.OFFWIV ---
Intake Vital Signs 02/13/25 09:09 Height 5 ft 9.5 in Weight 258 lb BMI 37.5 BP 106/62 Blood Pressure Location Rt brachial Position Sitting Pulse 83 Pulse Source Pulse Oximeter Temp 98.1 F Temp Source Oral Pulse Oximetry (%) 97 Oxygen Delivery Method Room Air Intake Visit Reasons: EP Jammed LT pinky finger Intake Note: presents with left 5th finger pain after jamming into a wall Patient Tobacco Use Status: Never used Tobacco Allergies No Known Allergies Allergy (Verified 02/13/25 09:11) Do you need a note to return to daycare/school/sports/work: Yes Return to daycare/school/sports/work/other note: work HPI HPI Comments History of Present Illness Details Patient is a 19yo M who presents to office with 5th digit pain post trauma Left finger 5th digit Occurred yesterday Pt is L hand dominant 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 Cognitive needs: No Hearing needs: No Vision needs: No Review of Systems Const Denies chills, Denies fatigue and Denies fever(s) Resp Denies cough Musc Reports deformity, Reports arthralgias, Reports joint swelling (L 5th digit finger; mainly MCP joint), Reports stiffness and Denies tingling Skin/Breast Denies rash, Reports skin pain and Reports skin swelling Neuro Denies tingling Endo Denies fatigue Physical Exam Vital Signs: Last Vital Signs Temp 98.1 F 02/13/25 09:09 Pulse 83 02/13/25 09:09 BP 106/62 02/13/25 09:09 Pulse Ox 97 02/13/25 09:09 Oxygen Delivery Method Room Air 02/13/25 09:09 BMI result Body Mass Index 37.5 General: Non-toxic, NAD. Speaking full sentences. Skin: Warm dry throughout. + edema to L hand 5th digit at MCP joint and proximal phalanx of digit. No erythema or ecchymosis. No skin wounds or lacerations. Eye: EOMI Cardiac: Radial pulse intact LUE. Cap refill < 2 seconds L 5th digit on hand. MSK: No ttp carpal bones, or 1-4 metacarpals or digits 1-4 on L hand. + ttp L 5th distal metacarpal bone, MCP joint, proximal phalanx and PIP joint. No ttp L 5th DIP joint. Flexion of L 5th digit to 120 degrees. + full extension. Moving remainder of extremities without deficit. Neurology: Alert. No aphasia or facial droop. Gait without abnormality. Sensation intact L 5th digit on hand. Psych: Good mood and affect Assessment & Plan Assessment & Plan (1) Injury of left little finger: Code(s): S69.92XA - Unspecified injury of left wrist, hand and finger(s), initial encounter Qualifiers: Encounter type: initial encounter Qualified Code(s): S69.92XA - Unspecified injury of left wrist, hand and finger(s), initial encounter Plan: Patient seen and evaluated. Xray L 5th digit: negative for fx Pt has his own finger splint and will wear for comfort Elevate and ice Tylenol/Motrin prn pain F/U with PCP Patient gave verbal understanding and had no additional questions or concerns at time of discharge All questions answered Orders: Orders XR finger LT min 2V Today S69.92XA - Unspecified injury of left wrist, hand and finger(s), initial encounter Coding Level of Care Code Est Pt Level 3 (01498) Diagnoses Injury of left little finger, initial encounter S69.92XA Encounter type: initial encounter
--- OUTSIDE RECORDS SUMMARY | 2025-02-13 09:17 | XMS_ITS | Encounter Summary ---
Author Organization [facility] Address [address] [place] [address] Phone Care Team Providers Care Skein Yarn Dyer Helper Name Role Phone Provider, Ravindra LINDSAY Primary Care Provider [phone] Encounter Details Date Type Department Care Team (Late st Contact Info) Description 07/09/2015 Documentation [facility] [place] [address] [place], [place] [id number] Family Medicine, Physician [address] [place] [address] Social History Tobacco Use Types Packs/Day Years [...] on filedocumented in this encounter Care Teams Skein Yarn Dyer Helper Relationship Specialty Start Date End Date Provider, MD Ravindra [address] [place] [phone] PCP - General Pediatrics 01/26/24 07/23/24 documented as of this encounter
== END 2025-02-13 10:04 | disposition home or self-care (01) ==
PROVIDERS: Visit Provider Physician Assistant
DX: S69.92XA Unspecified injury of left wrist, hand and finger(s), initial encounter (principal)

== ENCOUNTER → 2025-02-13 09:27 | Outpatient (BNV) | payer OTHER, SELFPAY | PROVIDERS: Visit Provider Radiology Diagnostic Radiology | DX: S69.92XA Unspecified injury of left wrist, hand and finger(s), initial encounter (principal) | CPT/HCPCS: 73140 ==

== ENCOUNTER 2025-02-14 10:06 | Outpatient (AMB) | payer OTHER, SELFPAY ==
[2025-02-14 10:09] VITALS: BP 136/82; PULSE 96; TEMP 36.3; O2SAT 97; BMI 37.3
--- NOTE | 2025-02-14 10:09 | MHC.PC.OV ---
Vital Signs 02/14/25 10:09 Height 5 ft 9.5 in Weight 256 lb BMI 37.3 BP 136/82 Blood Pressure Location Lt brachial Position Sitting Pulse 96 Pulse Source Pulse Oximeter Temp 97.3 F Temp Source Temporal Artery Scan Pulse Oximetry (%) 97 Oxygen Delivery Method Room Air Intake Visit Reasons: Fractured Finger - needs letter for work Allergies No Known Allergies Allergy (Verified 02/14/25 10:12) Tobacco use date assessed: 12/13/24 Dental Screening Dental Screen Date: 12/13/24 Did you have a dental visit in the last 12 months?: No Did you have a dental problem in the last 6 months where you did not have access to dental care?: No Was dental information given to patient?: Patient declined HPI Fractured Finger - needs letter for work HPI Details 19-year-old obese male with a history of obstructive sleep apnea asthma coming in for an acute problem. Patient is being seen for the 1st time. Review of the notes was in the Urgent Center in [place] in February 13 2025 for jamming the pinky finger left into the wall this occurred February 12 patient works at [employer] on machines slipped and his 5th digit jammed against the wall x-ray done on the left 5th digit negative for fracture. X-ray done showing normal radiograph. 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 1. Little interest or pleasure in doing things: not at all 2. Feeling down, depressed, or hopeless: not at all 3. Trouble falling or staying asleep, or sleeping too much: several days 4. Feeling tired or having little energy: several days 5. Poor appetite or overeating: not at all 6. Feeling bad about yourself - or that you are a failure or have let yourself or your family down: not at all 7. Trouble concentrating on things, such as reading the newspaper or watching television: several days 8. Moving or speaking so slowly that other people could have noticed. Or the opposite - being so fidgety or restless that you have been moving around a lot more than usual: several days 9. Thoughts that you would be better off or of hurting yourself in some way: not at all Total score: 4 Depression Screening Interpretation: Positive Depression Screening Done: Yes Source: Developed by Drs. Jah Leyva, Lilly Tran, Won Murphy and colleagues, with an educational juani from [employer]. Thrive Questionnaire Date Thrive assessed: 10/25/24 I am a: Patient What is your living situation today?: I have a steady place to live Within the past 12 months, did the food you bought not last and you didn't have the money to get more?: Never true Within the past 12 months, did you worry whether your food would run out before you got money to buy more?: Never true Do you have trouble paying for medicines?: No Do you have trouble getting transportation to medical appointments?: No Do you have trouble paying your heating and electricity bill?: No Do you have trouble taking care of your child, family member or friend?: No Do you have trouble with day-to-day activities such as bathing, preparing meals, shopping, managing finances, etc.?: No Are you currently unemployed and looking for a job?: No Are you interested in more education?: No Please select the resources that you would like help with: None Currently or been in a relationship where the following occur: No concerns reported THRIVE Score: 0 AUDIT C Alcohol Use Questionnaire (AUDIT-C) 1. How often do you have a drink containing alcohol?: 2-4 times a month 2. How many drinks containing alcohol do you have on a typical day when you are drinking?: 3 or 4 3. How often do you have six or more drinks on one occasion?: Less than monthly Total Score: 4 SHADI-7 AMB Questionnaire SHADI-7 Date SHADI - 7 assessed: 12/13/24 Feeling nervous, anxious, or on edge: 0 = Not at all Not being able to stop or control worryin = Not at all Worrying too much about different things: 0 = Not at all Trouble relaxin = Not at all Being so restless that it is hard to sit still: 1 = Several days Becoming easily annoyed or irritable: 0 = Not at all Feeling afraid as if something awful might happen: 0 = Not at all Total SHADI-7 score (0-4 normal; 5-9 mild; 10-14 moderate; 15-21 severe): 1 Source: Developed by Drs. Jah Leyva, Lilly Tran, Won Murphy and colleagues, with an educational juani from [employer]. Physical exam (Primary Care) Vital Signs: Last Vital Signs Temp 97.3 F 02/14/25 10:09 Pulse 96 02/14/25 10:09 BP 136/82 02/14/25 10:09 Pulse Ox 97 02/14/25 10:09 Oxygen Delivery Method Room Air 02/14/25 10:09 BMI result Body Mass Index 37.3 Tobacco/Smoking Status: Tobacco use Status Tobacco use date assessed 12/13/24 02/14/25 10:10 Patient Tobacco Use Status Never used Tobacco 02/14/25 10:10 e-Cigarette/Vaping Use Never Used 02/14/25 10:10 PHQ-9: PHQ-9 Score PHQ-9: Total score 4 02/14/25 10:13 Depression Screening Interpretation: Positive Thrive Assessment: Date of Thrive Assessment Date Thrive assessed 10/25/24 02/14/25 10:10 Currently or been in a relationship where the following occur: No concerns reported Const General: alert; No acute distress Eyes Conjunctivae: conjunctivae normal Resp Auscultation: clear to auscultation bilaterally Cardio Rate: regular rate Rhythm: regular rhythm GI Inspection: Yes normal to inspection Extrem Other: Hand exam range of motion normal and pulse radial normal General: Yes normal to inspection and No edema Coding Level of Care Code Est Pt Level 3 (21605) Diagnoses Injury of left little finger, initial encounter S69.92XA Encounter type: initial encounter Assessment & Plan Assessment & Plan (1) Injury of left little finger: Code(s): S69.92XA - Unspecified injury of left wrist, hand and finger(s), initial encounter Category: Medical Qualifiers: Encounter type: initial encounter Qualified Code(s): S69.92XA - Unspecified injury of left wrist, hand and finger(s), initial encounter Plan: X-ray 02/13/2025 no fracture. Note for going back to work printed.
--- OUTSIDE RECORDS SUMMARY | 2025-02-14 10:33 | XMS_ITS | Encounter Summary ---
Author Organization [facility] Address [address] [place] [address] Phone Care Team Providers Care Business Services Intern Name Role Phone Provider, Ravindra LINDSAY Primary Care Provider [phone] Encounter Details Date Type Department Care Team (Late st Contact Info) Description 07/09/2015 Documentation [facility] [place] [address] [place], [place] [id number] Family Medicine, Physician [address] [place] [address] Social History Tobacco Use Types Packs/Day Years [...] on filedocumented in this encounter Care Teams Business Services Intern Relationship Specialty Start Date End Date Provider, MD Ravindra [address] [place] [phone] PCP - General Pediatrics 01/26/24 07/23/24 documented as of this encounter
== END 2025-02-14 10:36 | disposition home or self-care (01) ==
LOC: HO.HMCH 10:06
PROVIDERS: Visit Provider Internal Medicine
DX: S69.92XA Unspecified injury of left wrist, hand and finger(s), initial encounter (principal)

== ENCOUNTER → 2025-02-14 10:06 | Outpatient (BNVA) | payer OTHER, SELFPAY | PROVIDERS: Visit Provider Internal Medicine | DX: G47.33 Obstructive sleep apnea (adult) (pediatric) (principal); S69.92XA Unspecified injury of left wrist, hand and finger(s), initial encounter; X58.XXXA Exposure to other specified factors, initial encounter; Y93.9 Activity, unspecified; Y92.9 Unspecified place or not applicable; Y99.9 Unspecified external cause status | CPT/HCPCS: 99212 ==

== ENCOUNTER 2025-03-14 10:55 | Outpatient (AMB) | payer OTHER, SELFPAY ==
[2025-03-14 10:57] VITALS: BP 120/60; PULSE 92; RESP 18; TEMP 36.1; O2SAT 98
--- NOTE | 2025-03-14 10:57 | MHC.PC.OV ---
Vital Signs 03/14/25 10:57 Height 5 ft 9 in BP 120/60 Blood Pressure Location Lt brachial Position Sitting Respiration 18 Pulse 92 Pulse Source Pulse Oximeter Temp 96.9 F Temp Source Temporal Artery Scan Pulse Oximetry (%) 98 Oxygen Delivery Method Room Air Intake Visit Reasons: discuss enlarged liver Incident Response Analyst Required: No Accompanied by: Self / Same As Patient Allergies No Known Allergies Allergy (Verified 03/14/25 11:14) Medication List - Last Reconciled 03/14/25 by KIRAN Vasquez albuterol sulfate 90 mcg/actuation (Ventolin HFA) 2 puffs inhalation Q4-6H PRN budesonide-formoterol 80-4.5 mcg/actuation (Symbicort) 2 puffs inhalation BID cholecalciferol (vitamin D3) 50 mcg PO DAILY Tobacco use date assessed: 12/13/24 Dental Screening Dental Screen Date: 12/13/24 Did you have a dental visit in the last 12 months?: No Did you have a dental problem in the last 6 months where you did not have access to dental care?: No Was dental information given to patient?: No HPI discuss enlarged liver HPI Details The patient is a 19-year-old male presenting with abdominal pain and nausea. The abdominal pain is described as stabbing and squeezing, primarily located in the right upper quadrant, and is exacerbated by eating. The patient reports associated symptoms of nausea and vomiting, particularly after eating, and has experienced episodes of vomiting with coffee ground-like material. Reports hx of GERD when he was younger. The patient denies alcohol consumption in recent months and reports episodes of diarrhea with greenish stools. He denies heartburn but reports nausea and vomiting after eating, which improves when fasting. An ultrasound revealed mild hepatomegaly, but liver enzymes were within normal limits. The patient has a history of GERD-like symptoms, including pressure and nausea after eating, but denies current heartburn. 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 1. Little interest or pleasure in doing things: not at all 2. Feeling down, depressed, or hopeless: not at all 3. Trouble falling or staying asleep, or sleeping too much: several days 4. Feeling tired or having little energy: several days 5. Poor appetite or overeating: not at all 6. Feeling bad about yourself - or that you are a failure or have let yourself or your family down: not at all 7. Trouble concentrating on things, such as reading the newspaper or watching television: several days 8. Moving or speaking so slowly that other people could have noticed. Or the opposite - being so fidgety or restless that you have been moving around a lot more than usual: several days 9. Thoughts that you would be better off or of hurting yourself in some way: not at all Total score: 4 Depression Screening Interpretation: Positive Depression Screening Done: Yes Source: Developed by Drs. Jah Leyva, Lilly Tran, Won Murphy and colleagues, with an educational juani from [employer]. Thrive Questionnaire Date Thrive assessed: 03/14/25 I am a: Patient What is your living situation today?: I have a steady place to live Within the past 12 months, did the food you bought not last and you didn't have the money to get more?: Never true Within the past 12 months, did you worry whether your food would run out before you got money to buy more?: Never true Do you have trouble paying for medicines?: No Do you have trouble getting transportation to medical appointments?: No Do you have trouble paying your heating and electricity bill?: No Do you have trouble taking care of your child, family member or friend?: No Do you have trouble with day-to-day activities such as bathing, preparing meals, shopping, managing finances, etc.?: No Are you currently unemployed and looking for a job?: No Are you interested in more education?: No Please select the resources that you would like help with: None Currently or been in a relationship where the following occur: No concerns reported THRIVE Score: 0 AUDIT C Alcohol Use Questionnaire (AUDIT-C) 1. How often do you have a drink containing alcohol?: 2-4 times a month 2. How many drinks containing alcohol do you have on a typical day when you are drinking?: 3 or 4 3. How often do you have six or more drinks on one occasion?: Less than monthly Total Score: 4 SHADI-7 AMB Questionnaire SHADI-7 Date SHADI - 7 assessed: 03/14/25 Feeling nervous, anxious, or on edge: 0 = Not at all Not being able to stop or control worryin = Not at all Worrying too much about different things: 0 = Not at all Trouble relaxin = Not at all Being so restless that it is hard to sit still: 1 = Several days Becoming easily annoyed or irritable: 0 = Not at all Feeling afraid as if something awful might happen: 0 = Not at all Total SHADI-7 score (0-4 normal; 5-9 mild; 10-14 moderate; 15-21 severe): 1 Source: Developed by Drs. Jah Leyva, Lilly Tran, Won Murphy and colleagues, with an educational juani from [employer]. Review of Systems Const Denies body aches, Denies chills, Denies fever(s), Denies headache(s) and Denies poor appetite Eyes Reports no additional complaints ENT Denies dysphagia, Denies dizziness, Denies headache(s) and Denies odynophagia Card Denies chest pain, Denies syncope, Denies edema, Denies irregular heart rhythm, Denies lightheadedness and Denies dyspnea Resp Denies cough and Denies dyspnea GI Reports abdominal pain (right upper quadrant after eating), Denies constipation, Denies dysphagia, Denies diarrhea, Reports nausea, Denies odynophagia and Reports vomiting (if he tops his RUQ for a extensive period) Reports no additional complaints Musc Reports no additional complaints and Denies abnormal gait Skin/Breast Reports system reviewed and no additional complaints, except as documented Neuro Denies abnormal gait, Denies dizziness, Denies syncope and Denies headache(s) Psych Reports no additional complaints Physical exam (Primary Care) Vital Signs: Last Vital Signs Temp 96.9 F 03/14/25 10:57 Pulse 92 03/14/25 10:57 Resp 18 03/14/25 10:57 BP 120/60 03/14/25 10:57 Pulse Ox 98 03/14/25 10:57 Oxygen Delivery Method Room Air 03/14/25 10:57 Tobacco/Smoking Status: Tobacco use Status Tobacco use date assessed 12/13/24 03/14/25 11:07 Patient Tobacco Use Status Never used Tobacco 03/14/25 11:07 e-Cigarette/Vaping Use Never Used 03/14/25 11:07 PHQ-9: PHQ-9 Score PHQ-9: Total score 4 03/14/25 11:18 Depression Screening Interpretation: Positive Thrive Assessment: Date of Thrive Assessment Date Thrive assessed 03/14/25 03/14/25 11:07 Currently or been in a relationship where the following occur: No concerns reported Const General: cooperative, healthy appearing, comfortable and no acute distress Orientation/consciousness: patient oriented x3 HENMT Head: Yes normocephalic Ears: hearing grossly normal bilaterally General nose exam: Normal external nose present Eyes General: appearance normal, both eyes and all related structures Conjunctivae: conjunctivae normal Neck Neck: Yes full ROM and Yes no lymphadenopathy Resp Effort & Inspection: normal respiratory effort Auscultation: clear to auscultation bilaterally, no crackles, no rales, no rhonchi and no wheezes Cardio Rate: regular rate Rhythm: regular rhythm Heart sounds: S1 normal heart sound present, S2 normal heart sound present and no murmurs GI Palpation (GI): Soft to palpation and Tenderness to palpation present (GI) (Describes as pressure in epigastric region) Auscultation: normal bowel sounds General: Yes no CVA tenderness Back/Spine/Pelvis Back: no CVA tenderness Skin General skin exam: no rashes or lesions noted Neuro General: patient oriented x3 Gait exam (Neuro): Normal gait present Extrem General: Yes normal to inspection, Yes full ROM and No edema Psych Affect: normal affect Attitude: cooperative Insight: Good insight present (Psych) Judgement: Good judgement present (Psych) Coding Level of Care Code Est Pt Level 3 (69385) Diagnoses RUQ abdominal pain R10.11 Nausea R11.0 Time Spent (min) 36 Assessment & Plan Assessment & Plan (1) RUQ abdominal pain: Code(s): R10.11 - Right upper quadrant pain Category: Medical (2) Nausea: Code(s): R11.0 - Nausea Category: Medical Plan The patient will be started on omeprazole to manage symptoms of gastroesophageal reflux disease GERD). Instructions were provided to take the medication in the morning before eating to prevent symptom onset. The patient was advised to avoid foods that may trigger symptoms, such as acidic and greasy foods, and to avoid eating close to bedtime. Follow-up is scheduled in six weeks to assess the effectiveness of the treatment and to conduct further evaluation if necessary. Additionally, the patient will undergo blood work, including tests for liver function and sexually transmitted diseases (per patient request). Patient was informed and verbally consented to the use of an ambient scribe for clinic note documentation during this visit. Orders: Orders CT NG by PCR Urine Today R10.11 - Right upper quadrant pain, Z11.3 - Encounter for screening for infections with a predominantly sexual mode of transmission HIV Ab/Ag Today R10.11 - Right upper quadrant pain, Z11.3 - Encounter for screening for infections with a predominantly sexual mode of transmission Hepatitis A,B,C Profile Today R10.11 - Right upper quadrant pain, Z11.3 - Encounter for screening for infections with a predominantly sexual mode of transmission Syphilis Screen Today R10.11 - Right upper quadrant pain, Z11.3 - Encounter for screening for infections with a predominantly sexual mode of transmission Medications: New omeprazole 40 mg PO DAILY 60 caps 2RF
--- OUTSIDE RECORDS SUMMARY | 2025-03-14 10:58 | XMS_ITS | Encounter Summary ---
Author Organization [facility] Address [address] [place] [address] Phone Care Team Providers Care Assembling Motor Builder Name Role Phone Provider, Ravindra LINDSAY Primary Care Provider [phone] Encounter Details Date Type Department Care Team (Late st Contact Info) Description 07/09/2015 Documentation [facility] [place] Family Medicine [address] [place], [place] [phone] Family Medicine, Physician [address] [place] [address] Social History Tobacco Use Types Packs/Day Years [...] on filedocumented in this encounter Care Teams Assembling Motor Builder Relationship Specialty Start Date End Date Provider, MD Ravindra [address] [place] [phone] PCP - General Pediatrics 01/26/24 07/23/24 documented as of this encounter
== END 2025-03-14 11:29 | disposition home or self-care (01) ==
LOC: HO.HMCH 10:56
DX: R10.11 Right upper quadrant pain (principal); R11.0 Nausea

== ENCOUNTER → 2025-03-14 10:55 | Outpatient (BNVA) | payer OTHER, SELFPAY | DX: R10.11 Right upper quadrant pain (principal); R11.0 Nausea; R19.7 Diarrhea, unspecified | CPT/HCPCS: 99212 ==

== ENCOUNTER 2025-03-17 14:37 | Outpatient (REF) | payer OTHER, SELFPAY ==
--- OUTSIDE RECORDS SUMMARY | 2025-03-17 15:03 | XMS_ITS | Encounter Summary ---
Author Organization [facility] Address [address] [place] [address] Phone Care Team Providers Care Diamond Picker Name Role Phone Provider, Ravindra LINDSAY Primary Care Provider [phone] Encounter Details Date Type Department Care Team (Late st Contact Info) Description 07/09/2015 Documentation [facility] [place] Family Medicine [address] [place], [place] [address] Family Medicine, Physician [address] [place] [address] Social History Tobacco Use Types Packs/Day Years [...] on filedocumented in this encounter Care Teams Diamond Picker Relationship Specialty Start Date End Date Provider, MD Ravindra [address] [place] [phone] PCP - General Pediatrics 01/26/24 07/23/24 documented as of this encounter
[2025-03-18 08:42] LABS: HBS Num1 1.28 mIU/mL (0-7.99); HBc Num1 0.10 S/CO (0.00-0.79); HBsAGNum1 1.51 S/CO (0.00-0.99); HIV Num 1 0.05 S/CO (0.00-0.99); Hepatitis A Antibody IgM 0.17 Index (0-0.79); ~HepC Num1 0.11 S/CO (0.00-0.79); ~Hepatitis A Antibody IgM Nonreactive (Nonreactive); ~Hepatitis B Surface Antibody NONREACTIVE (Nonreactive); ~Hepatitis C Antibody Nonreactive (Nonreactive)
[2025-03-18 09:13] LABS: Syphilis Screen Nonreactive (Nonreactive)
[2025-03-18 10:09] LABS: CT PCR Urine NOT DETECTED (Not Detect.); NG PCR Urine NOT DETECTED (Not Detect.)
[2025-03-18 11:50] LABS: HBsAGNum2 Nonreactive; HBsAGNum3 Nonreactive; Hepatitis B Surface Antigen NEGATIVE (Negative)
== END 2025-03-17 14:38 | disposition home or self-care (01) ==
LOC: HO.LAB 14:37
DX: Z11.3 Encounter for screening for infections with a predominantly sexual mode of transmission (principal); Z11.8 Encounter for screening for other infectious and parasitic diseases; Z11.4 Encounter for screening for human immunodeficiency virus [HIV]; Z11.59 Encounter for screening for other viral diseases; R10.11 Right upper quadrant pain
CPT/HCPCS: 86704; 86706; 86709; 86780; 86803; 87340; 87389; 87491; 87591

== ENCOUNTER 2025-04-25 15:45 | Outpatient (AMB) | payer OTHER, SELFPAY ==
--- OUTSIDE RECORDS SUMMARY | 2025-04-25 15:48 | XMS_ITS | Encounter Summary ---
Author Organization [facility] Address [address] [place] [address] Phone Care Team Providers Care Mobile Mechanic Name Role Phone Provider, Ravindra LINDSAY Primary Care Provider [phone] Reason for Visit * Reason Onset Date Comments Med Refill 12/21/2020 Encounter Details Date Type Department Care Team (Late st Contact Info) Description 12/21/2020 Refill [facility] [address] [place] [address] Brandon Lam MD [address] [place] [address] Mild persistent asthma without complication Social History [...] complication documented in this encounter Care Teams Mobile Mechanic Relationship Specialty Start Date End Date Provider, MD Ravindra [address] [place] [phone] PCP - General Pediatrics 01/26/24 07/23/24 documented as of this encounter
--- OUTSIDE RECORDS SUMMARY | 2025-04-25 15:48 | XMS_ITS | Encounter Summary ---
Author Organization [facility] Address [address] [place] [address] Phone Care Team Providers Care Ecology Teacher Name Role Phone Provider, Ravindra LINDSAY Primary Care Provider [phone] Encounter Details Date Type Department Care Team (Late st Contact Info) Description 12/25/2009 Documentation [facility] [place] Family Medicine [address] [place], [place] [phone] Family Medicine, Physician [address] [place] [address] Social History Tobacco Use Types Packs/Day Years [...] on filedocumented in this encounter Care Teams Ecology Teacher Relationship Specialty Start Date End Date Provider, MD Ravindra [address] [place] [phone] PCP - General Pediatrics 01/26/24 07/23/24 documented as of this encounter
--- OUTSIDE RECORDS SUMMARY | 2025-04-25 15:48 | XMS_ITS | Clinical Summary ---
Author Organization [facility] Address [address] [place] [address] Phone Care Team Providers Care Referral Coordinator Name Role Phone Unavailable Primary Care Provider [...] years. He used his sisters via the [employer] machine last night. He did not sleep [...] Overview (11/12/2021): Mild illness 08/2021- full recovery Immunizations Immunization Administration Dates Next Due COVID-19 [...] 98 08/02/2023 2:44 PM EST Temperature 36.7 C (98.1 F) 08/02/2023 2:44 PM EST Respiratory Rate 24 08/14/2018 9:24 AM EST [...] Vaccine (1 of 2 - Standard) 2019 DTaP,Tdap,and Td Vaccines (7 - Td or Tdap) 10/03/2024 10/03/2014, 12/27/2007, 10/19/2004, Additional history exists Influenza Vaccines (#1) 2025 04/19/20 23, 08/03/2022, 04/29/2021, Additional history exists COVID-19 Vaccine (2024-2 6 season) 2025 01/31/2022, 12/29/2020, 12/08/2020 Hepatitis B Vaccines Completed 01/13/2004, 2003, 2003 HIB Vaccines Completed 10/19/2004, 02/2004, 2003 Pneumococcal Vaccine Completed 10/19/2004, 01/13/2004, 2003, Additional history exists MMR Vaccines Completed 12/27/2007, 07/05/2004 Varicella Vaccines Completed 01/06/2009, 07/05/2004 IPV Vaccines Completed 01/12/2009, 03/2004, 2003, Additional history exists Hepatitis A Vaccines Completed 10/03/2014, 03/14/20 11 HPV Vaccines Completed 03/24/2015, 11/05, 10/03/2014 Meningococcal Vaccine Completed 11/12/2019, 015 Insurance NON PCC [facility]
--- OUTSIDE RECORDS SUMMARY | 2025-04-25 15:48 | XMS_ITS | Encounter Summary ---
Author Organization [facility] Address [address] [place] [address] Phone Care Team Providers Care Refueling Ramp Attendant Name Role Phone Provider, Ravindra LINDSAY Primary Care Provider [phone] Encounter Details Date Type Department Care Team (Late st Contact Info) Description 07/09/2015 [place] [facility] [place] [address] [place], [place] [phone] Family Medicine, Physician [address] [place] [address] Social History Tobacco Use Types Packs/Day Years [...] on filedocumented in this encounter Care Teams Refueling Ramp Attendant Relationship Specialty Start Date End Date Provider, MD Ravindra [address] [place] [phone] PCP - General Pediatrics 01/26/24 07/23/24 documented as of this encounter
--- OUTSIDE RECORDS SUMMARY | 2025-04-25 15:48 | XMS_ITS | Encounter Summary ---
Author Organization [facility] Address [address] [place] [address] Phone Care Team Providers Care Hydro Plant Site Manager Name Role Phone Provider, Ravindra LINDSAY Primary Care Provider [phone] Encounter Details Date Type Department Care Team (Late st Contact Info) Description 07/09/2015 Documentation [facility] [place] Family Medicine [address] [place], [place] [phone] Family Medicine, Physician [address] [place] [address] Social History Tobacco Use Types Packs/Day Years [...] on filedocumented in this encounter Care Teams Hydro Plant Site Manager Relationship Specialty Start Date End Date Provider, MD Ravindra [address] [place] [phone] PCP - General Pediatrics 01/26/24 07/23/24 documented as of this encounter
--- OUTSIDE RECORDS SUMMARY | 2025-04-25 15:48 | XMS_ITS | Encounter Summary ---
Author Organization [facility] Address [address] [place] [address] Phone Care Team Providers Care Dungeon Master Name Role Phone Provider, Ravindra LINDSAY Primary Care Provider [phone] Encounter Details Date Type Department Care Team (Late st Contact Info) Description 09/01/2016 Documentation [facility] [place] [address] [place], [place] [phone] Family Medicine, Physician [address] [place] [address] Social History Tobacco Use Types Packs/Day Years [...] on filedocumented in this encounter Care Teams Dungeon Master Relationship Specialty Start Date End Date Provider, MD Ravindra [address] [place] [phone] PCP - General Pediatrics 01/26/24 07/23/24 documented as of this encounter
--- OUTSIDE RECORDS SUMMARY | 2025-04-25 15:48 | XMS_ITS | Encounter Summary ---
Author Organization [facility] Address [address] [place] [address] Phone Care Team Providers Care Knife Setter Grinder Machine Name Role Phone Provider, Ravindra LINDSAY Primary Care Provider [phone] Reason for Visit * Reason Comments Med Refill Encounter Details Date Type Department Care Team (Late st Contact Info) Description 09/10/2018 Refill [facility] [place] [address] [place] [address] Brandon Lam MD [address] [place] [address] Mild intermittent asthma with acute exacerbation Social [...] exacerbation documented in this encounter Care Teams Knife Setter Grinder Machine Relationship Specialty Start Date End Date Provider, MD Ravindra [address] [place] [phone] PCP - General Pediatrics 01/26/24 07/23/24 documented as of this encounter
--- OUTSIDE RECORDS SUMMARY | 2025-04-25 15:48 | XMS_ITS | Encounter Summary ---
Author Organization [facility] Address [address] [place] [address] Phone Care Team Providers Care Transition Assistant Name Role Phone Provider, Ravindra LINDSAY Primary Care Provider [phone] Encounter Details Date Type Department Care Team (Late st Contact Info) Description 05/14/2013 Documentation [facility] [place] [address] [place], [place] [phone] Family Medicine, Physician [address] [place] [address] Social History Tobacco Use Types Packs/Day Years [...] on filedocumented in this encounter Care Teams Transition Assistant Relationship Specialty Start Date End Date Provider, MD Ravindra [address] [place] [phone] PCP - General Pediatrics 01/26/24 07/23/24 documented as of this encounter
--- OUTSIDE RECORDS SUMMARY | 2025-04-25 15:48 | XMS_ITS | Encounter Summary ---
Author Organization [facility] Address [address] [place] [address] Phone Care Team Providers Care Oracle Database Manager Name Role Phone Provider, Ravindra LINDSAY Primary Care Provider [phone] Encounter Details Date Type Department Care Team (Late st Contact Info) Description 07/26/2016 Documentation [facility] [place] Family Medicine [address] [place], [place] [phone] Family Medicine, Physician [address] [place] [address] Social History Tobacco Use Types Packs/Day Years [...] on filedocumented in this encounter Care Teams Oracle Database Manager Relationship Specialty Start Date End Date Provider, MD Ravindra [address] [place] [phone] PCP - General Pediatrics 01/26/24 07/23/24 documented as of this encounter
--- OUTSIDE RECORDS SUMMARY | 2025-04-25 15:48 | XMS_ITS | Encounter Summary ---
Author Organization [facility] Address [address] [place] [address] Phone Care Team Providers Care Field Sales Agent Name Role Phone Provider, Ravindra LINDSAY Primary Care Provider [phone] Encounter Details Date Type Department Care Team (Late st Contact Info) Description 08/10/2016 Documentation [facility] [place] [address] [place], [place] [address] Family Medicine, Physician [address] [place] [address] Social History Tobacco Use Types Packs/Day Years [...] on filedocumented in this encounter Care Teams Field Sales Agent Relationship Specialty Start Date End Date Provider, MD Ravindra [address] [place] [phone] PCP - General Pediatrics 01/26/24 07/23/24 documented as of this encounter
--- OUTSIDE RECORDS SUMMARY | 2025-04-25 15:48 | XMS_ITS | Encounter Summary ---
Author Organization [facility] Address [address] [place] [address] Phone Care Team Providers Care Truck Driver Rubbish Collector Name Role Phone Provider, Ravindra LINDSAY Primary Care Provider [phone] Encounter Details Date Type Department Care Team (Late st Contact Info) Description 03/23/2017 Conversion Encounter [facility] [place] [address] [place] [address] Social History Tobacco Use Types Packs/Day Years [...] filedocumented in this encounter Care Teams Truck Driver Rubbish Collector Relationship Specialty Start Date End Date Provider, MD Ravindra [address] [place] [phone] PCP - General Pediatrics 01/26/24 07/23/24 documented as of this encounter
--- OUTSIDE RECORDS SUMMARY | 2025-04-25 15:48 | XMS_ITS | Encounter Summary ---
Author Organization [facility] Address [address] [place] [address] Phone Care Team Providers Care Immunologist Name Role Phone Provider, Ravindra LINDSAY Primary Care Provider Encounter Details Date Type Department Care Team (Late st Contact Info) Description 05/14/2013 Documentation [facility] [place] [address] [place], [place] [phone] Family Medicine, Physician [address] [place] [address] Social History Tobacco Use Types Packs/Day Years [...] on filedocumented in this encounter Care Teams Immunologist Relationship Specialty Start Date End Date Provider, MD Ravindra [address] [place] [phone] PCP - General Pediatrics 01/26/24 07/23/24 documented as of this encounter
[2025-04-25 15:55] VITALS: BP 142/60; PULSE 96; RESP 18; TEMP 36.3; O2SAT 97; BMI 37.2
--- NOTE | 2025-04-25 15:55 | A.OFFPC_ITS ---
Vital Signs 04/25/25 15:55 Height 5 ft 9 in Weight 252 lb 2 oz BMI 37.2 BP 142/60 H Blood Pressure Location Lt brachial Position Sitting Respiration 18 Pulse 96 Pulse Source Pulse Oximeter Temp 97.3 F Temp Source Temporal Artery Scan Pulse Oximetry (%) 97 Oxygen Delivery Method Room Air Intake Visit Reasons: 6 weeks abdominal pain/RUQ, epigastric pressure Eggs Inspector Required: No Accompanied by: Self / Same As Patient Allergies No Known Allergies Allergy (Verified 04/28/25 21:51) Medication List - Last Reconciled 04/28/25 by KIRAN Vasquez albuterol sulfate 90 mcg/actuation (Ventolin HFA) 2 puffs inhalation Q4-6H PRN budesonide-formoterol 80-4.5 mcg/actuation (Symbicort) 2 puffs inhalation BID cholecalciferol (vitamin D3) 50 mcg PO DAILY omeprazole 40 mg PO DAILY Tobacco use date assessed: 04/25/25 Dental Screening Dental Screen Date: 04/25/25 Did you have a dental visit in the last 12 months?: No Did you have a dental problem in the last 6 months where you did not have access to dental care?: No Was dental information given to patient?: No HPI 6 weeks abdominal pain/RUQ, epigastric pressure HPI Details The patient is a 19-year-old male presenting with chronic vomiting and concerns regarding liver health. The vomiting occurs every morning shortly after waking, regardless of dietary intake, and consists of either food or a foamy substance. The patient reports smoking cannabis primarily at night, which may be contributing to the vomiting. The patient has been informed of an enlarged liver, suspected to be nonalcoholic fatty liver disease, likely related to lifestyle factors such as diet and weig ht. The patient denies heavy alcohol consumption, which supports the diagnosis of nonalcoholic fatty liver disease. 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 Cognitive needs: No Hearing needs: No Vision needs: No Questionnaire Thrive Questionnaire Date Thrive assessed: 10/25/24 I am a: Patient What is your living situation today?: I have a steady place to live Within the past 12 months, did the food you bought not last and you didn't have the money to get more?: Never true Within the past 12 months, did you worry whether your food would run out before you got money to buy more?: Never true Do you have trouble paying for medicines?: No Do you have trouble getting transportation to medical appointments?: No Do you have trouble paying your heating and electricity bill?: No Do you have trouble taking care of your child, family member or friend?: No Do you have trouble with day-to-day activities such as bathing, preparing meals, shopping, managing finances, etc.?: No Are you currently unemployed and looking for a job?: No Are you interested in more education?: No Please select the resources that you would like help with: None Currently or been in a relationship where the following occur: No concerns reported THRIVE Score: 0 SHADI-7 AMB Questionnaire SHADI-7 Date SHADI - 7 assessed: 03/14/25 Source: Developed by Drs. Jah Leyva, Lilly Tran, Won Murphy and colleagues, with an educational juani from Desk. Review of Systems Const Denies body aches, Denies chills, Denies fever(s), Denies headache(s) and Denies poor appetite Eyes Reports no additional complaints ENT Denies dysphagia, Denies dizziness, Denies headache(s) and Denies odynophagia Card Denies chest pain, Denies syncope, Denies edema, Denies irregular heart rhythm, Denies lightheadedness and Denies dyspnea Resp Denies cough and Denies dyspnea GI Reports abdominal pain (right upper quadrant intermittently), Denies constipation, Denies dysphagia, Reports heartburn, Denies diarrhea, Denies nausea, Denies odynophagia and Reports vomiting (recurrent morning vomits) Reports no additional complaints Musc Reports no additional complaints and Denies abnormal gait Skin/Breast Reports system reviewed and no additional complaints, except as documented Neuro Denies Abnormal speech present, Denies abnormal gait, Denies dizziness, Denies syncope and Denies headache(s) Psych Reports no additional complaints Physical exam (Primary Care) Vital Signs: Last Vital Signs Temp 97.3 F 04/25/25 15:55 Pulse 96 04/25/25 15:55 Resp 18 04/25/25 15:55 BP 142/60 H 04/25/25 15:55 Pulse Ox 97 04/25/25 15:55 Oxygen Delivery Method Room Air 04/25/25 15:55 BMI result Body Mass Index 37.2 Tobacco/Smoking Status: Tobacco use Status Tobacco use date assessed 04/25/25 04/25/25 16:00 Patient Tobacco Use Status Never used Tobacco 04/25/25 16:00 e-Cigarette/Vaping Use Never Used 04/25/25 16:00 Thrive Assessment: Date of Thrive Assessment Date Thrive assessed 10/25/24 04/25/25 16:00 Currently or been in a relationship where the following occur: No concerns reported Const General: healthy appearing, no acute distress, alert and awake Nutritional Appearance: well nourished Orientation/consciousness: oriented to person, oriented to place and oriented to time HENMT Ears: hearing grossly normal bilaterally General nose exam: Normal external nose present Eyes Conjunctivae: conjunctivae normal Sclerae: sclerae normal Pupils: Equal, round and reactive pupils present Neck Neck: Yes no lymphadenopathy and Yes no JVD Thyroid: Thyroid normal Carotids: no bruits Resp Effort & Inspection: normal respiratory effort and not tachypneic Auscultation: no crackles, no rales, no rhonchi and no wheezes Cardio Rate: regular rate Rhythm: regular rhythm Heart sounds: S1 normal heart sound present, S2 normal heart sound present, no murmurs and normal S1 and S2 GI Palpation (GI): Soft to palpation, nontender, no hepatomegaly and no sple nomegaly Auscultation: normal bowel sounds Skin General skin exam: no rashes or lesions noted and dry skin Neuro General: oriented to person, oriented to place and oriented to time Cranial nerves: Yes Equal, round and reactive pupils present Speech: No Abnormal speech present Gait exam (Neuro): Normal gait present Motor exam (neuro): no tremor noted Extrem Right upper extremity: full ROM Left upper extremity: full ROM Right lower extremity: full ROM; no edema Left lower extremity: full ROM; no edema Psych Mental Status: mental status grossly normal Speech and movement: Normal speech and movement present Affect: normal affect Attitude: cooperative Thought process: Normal thought process present Coding Level of Care Code Est Pt Level 3 (37084) Diagnoses RUQ abdominal pain R10.11 Nonalcoholic fatty liver K76.0 Recurrent vomiting R11.10 Heartburn R12 Time Spent (min) 33 Assessment & Plan Assessment & Plan (1) RUQ abdominal pain: Code(s): R10.11 - Right upper quadrant pain Category: Medical Plan: nonalcoholic fatty liver noted on US, but no other acute findings. (2) Nonalcoholic fatty liver: Code(s): K76.0 - Fatty (change of) liver, not elsewhere classified Category: Medical Plan: abdominal ultrasound 01/28/25. showed Liver is slightly enlarged measuring 17.9 cm. Normal echogenicity. No focal lesion. Lifestyle modifications, including dietary changes and weight management, are recommended to address liver health. Further liver workup, including blood tests, is planned to monitor liver function. (3) Recurrent vomiting: Code(s): R11.10 - Vomiting, unspecified Category: Medical Plan: Suspected that the patient recurrent vomiting in the mornings is related to marijuana use at night. The patient was encouraged to cease marijuana used for a month to see if vomiting subsided. (4) Heartburn: Code(s): R12 - Heartburn Category: Medical Plan: Reinforced dietary restrictions continue omeprazole 40 mg daily Orders: Orders Hepatitis A,B,C Profile 04/25/25 R10.11 - Right upper quadrant pain, R16.0 - Hepatomegaly, not elsewhere classified Ferritin 04/25/25 R10.11 - Right upper quadrant pain, R16.0 - Hepatomegaly, not elsewhere classified SOFIA Reflex Titer and Pattern 04/25/25 R10.11 - Right upper quadrant pain, R16.0 - Hepatomegaly, not elsewhere classified Vitamin D 25-OH Total 04/25/25 E55.9 - Vitamin D deficiency, unspecified, E78.5 - Hyperlipidemia, unspecified, G47.33 - Obstructive sleep apnea (adult) (pediatric), J45.40 - Moderate persistent asthma, uncomplicated, R10.11 - Right upper quadrant pain, R11.0 - Nausea, R16.0 - Hepatomegaly, not elsewhere classified Lipid Panel 04/25/25 E55.9 - Vitamin D deficiency, unspecified, E78.5 - Hyperlipidemia, unspecified, G47.33 - Obstructive sleep apnea (adult) (pediatric), J45.40 - Moderate persistent asthma, uncomplicated, R10.11 - Right upper quadrant pain, R11.0 - Nausea, R16.0 - Hepatomegaly, not elsewhere classified Comprehensive [place]. Panel Fast 04/25/25 E55.9 - Vitamin D deficiency, unspecified, E78.5 - Hyperlipidemia, unspecified, G47.33 - Obstructive sleep apnea (adult) (pediatric), J45.40 - Moderate persistent asthma, uncomplicated, R10.11 - Right upper quadrant pain, R11.0 - Nausea, R16.0 - Hepatomegaly, not elsewhere classified Ceruloplasmin 04/25/25 R10.11 - Right upper quadrant pain, R16.0 - He patomegaly, not elsewhere classified UA CC w/rflx Micro + Cult 04/25/25 E55.9 - Vitamin D deficiency, unspecified, E78.5 - Hyperlipidemia, unspecified, G47.33 - Obstructive sleep apnea (adult) (pediatric), J45.40 - Moderate persistent asthma, uncomplicated, R10.11 - Right upper quadrant pain, R11.0 - Nausea, R16.0 - Hepatomegaly, not elsewhere classified TSH reflex Free T4 04/25/25 E55.9 - Vitamin D deficiency, unspecified, E78.5 - Hyperlipidemia, unspecified, G47.33 - Obstructive sleep apnea (adult) (pediatric), J45.40 - Moderate persistent asthma, uncomplicated, R10.11 - Right upper quadrant pain, R11.0 - Nausea, R16.0 - Hepatomegaly, not elsewhere classified Complete Blood Count Auto Diff 04/25/25 E55.9 - Vitamin D deficiency, unspecified, E78.5 - Hyperlipidemia, unspecified, G47.33 - Obstructive sleep apnea (adult) (pediatric), J45.40 - Moderate persistent asthma, uncomplicated, R10.11 - Right upper quadrant pain, R11.0 - Nausea, R16.0 - Hepatomegaly, not elsewhere classified
== END 2025-04-25 16:39 | disposition home or self-care (01) ==
LOC: HO.HMCH 15:46
DX: R10.11 Right upper quadrant pain (principal); K76.0 Fatty (change of) liver, not elsewhere classified; R11.10 Vomiting, unspecified; R12 Heartburn

== ENCOUNTER → 2025-04-25 15:45 | Outpatient (BNVA) | payer OTHER, SELFPAY | DX: R10.11 Right upper quadrant pain (principal); R11.10 Vomiting, unspecified; K76.0 Fatty (change of) liver, not elsewhere classified; R12 Heartburn; R16.0 Hepatomegaly, not elsewhere classified | CPT/HCPCS: 99212 ==

== ENCOUNTER 2025-06-18 07:56 | Outpatient (REF) | payer OTHER, SELFPAY ==
--- OUTSIDE RECORDS SUMMARY | 2025-06-18 07:59 | XMS_ITS | Encounter Summary ---
Author Organization [facility] Address [address] [place] [address] Phone Care Team Providers Care Sales Account Associate Name Role Phone Provider, Ravindra LINDSAY Primary Care Provider [phone] Encounter Details Date Type Department Care Team (Late st Contact Info) Description 08/10/2016 Documentation [facility] [place] [address] [place], [place] [phone] Family Medicine, Physician [address] [place] [address] Social History Tobacco Use Types Packs/Day Years [...] on filedocumented in this encounter Care Teams Sales Account Associate Relationship Specialty Start Date End Date Provider, MD Ravindra [address] [place] [phone] PCP - General Pediatrics 01/26/24 07/23/24 documented as of this encounter
--- OUTSIDE RECORDS SUMMARY | 2025-06-18 07:59 | XMS_ITS | Encounter Summary ---
Author Organization [facility] Address [address] [place] [address] Phone Care Team Providers Care Automatic Embroidery Machine Tender Name Role Phone Provider, Ravindra LINDSAY Primary Care Provider [phone] Encounter Details Date Type Department Care Team (Late st Contact Info) Description 07/09/2015 Documentation [facility] [place] [address] [place], [place] [phone] Family Medicine, Physician [address] [place] [address] Social History Tobacco Use Types Packs/Day Years [...] on filedocumented in this encounter Care Teams Automatic Embroidery Machine Tender Relationship Specialty Start Date End Date Provider, MD Ravindra [address] [place] [phone] PCP - General Pediatrics 01/26/24 07/23/24 documented as of this encounter
--- OUTSIDE RECORDS SUMMARY | 2025-06-18 07:59 | XMS_ITS | Encounter Summary ---
Author Organization [facility] Address [address] [place] [address] Phone Care Team Providers Care Security Operations Manager Name Role Phone Provider, Ravindra LINDSAY Primary Care Provider [phone] Encounter Details Date Type Department Care Team (Late st Contact Info) Description 07/26/2016 Documentation [facility] [place] Family Medicine [address] [place] [address] Family Medicine, Physician [address] [place] [address] Social History Tobacco Use Types Packs/Day Years [...] on filedocumented in this encounter Care Teams Security Operations Manager Relationship Specialty Start Date End Date Provider, MD Ravindra [address] [place] [phone] PCP - General Pediatrics 01/26/24 07/23/24 documented as of this encounter
--- OUTSIDE RECORDS SUMMARY | 2025-06-18 07:59 | XMS_ITS | Clinical Summary ---
Author Organization [facility] Address [address] [place] [address] Phone Care Team Providers Care Factory Process Workers Name Role Phone Unavailable Primary Care Provider [...] years. He used his sisters via the [employer] machine last night. He did not sleep [...] Vaccine Completed 11/12/2019, 015 Insurance NON PCC [facility] [facility]
--- OUTSIDE RECORDS SUMMARY | 2025-06-18 07:59 | XMS_ITS | Encounter Summary ---
Author Organization [facility] Address [address] [place] [address] Phone Care Team Providers Care Skip Miner Name Role Phone Provider, Ravindra LINDSAY Primary Care Provider Encounter Details Date Type Department Care Team (Late st Contact Info) Description 05/14/2013 Documentation [facility] [place] Family [place] [address] [place], [place] [phone] Family Medicine, Physician [address] [place] [address] Social History Tobacco Use Types Packs/Day Years [...] on filedocumented in this encounter Care Teams Skip Miner Relationship Specialty Start Date End Date Provider, MD Ravindra [address] [place] [phone] PCP - General Pediatrics 01/26/24 07/23/24 documented as of this encounter
--- OUTSIDE RECORDS SUMMARY | 2025-06-18 07:59 | XMS_ITS | Encounter Summary ---
Author Organization [facility] Address [address] [place] [address] Phone Care Team Providers Care Financial Retirement Plan Specialist Name Role Phone Provider, Ravindra LINDSAY Primary Care Provider [phone] Encounter Details Date Type Department Care Team (Late st Contact Info) Description 07/09/2015 Documentation [facility] [place] Family Medicine [address] [place], [place] [phone] Family Medicine, Physician [address] [place] [address] Social History Tobacco Use Types Packs/Day Years [...] on filedocumented in this encounter Care Teams Financial Retirement Plan Specialist Relationship Specialty Start Date End Date Provider, MD Ravindra [address] [place] [phone] PCP - General Pediatrics 01/26/24 07/23/24 documented as of this encounter
--- OUTSIDE RECORDS SUMMARY | 2025-06-18 07:59 | XMS_ITS | Encounter Summary ---
Author Organization [facility] Address [address] [place] [address] Phone Care Team Providers Care Robotics Technologist Name Role Phone Provider, Ravindra LINDSAY Primary Care Provider [phone] Encounter Details Date Type Department Care Team (Late st Contact Info) Description 09/01/2016 Documentation [facility] [place] [address] [place], [place] [phone] Family Medicine, Physician [address] [place] [address] Social History Tobacco Use Types Packs/Day Years [...] on filedocumented in this encounter Care Teams Robotics Technologist Relationship Specialty Start Date End Date Provider, MD Ravindra [address] [place] [phone] PCP - General Pediatrics 01/26/24 07/23/24 documented as of this encounter
--- OUTSIDE RECORDS SUMMARY | 2025-06-18 07:59 | XMS_ITS | Encounter Summary ---
Author Organization [facility] Address [address] [place] [address] Phone Care Team Providers Care Craft Artist Name Role Phone Provider, Ravindra LINDSAY Primary Care Provider [phone] Reason for Visit * Reason Comments Med Refill Encounter Details Date Type Department Care Team (Late st Contact Info) Description 09/10/2018 Refill [facility] [place] [address] [place] [address] Brandon Lam MD [address] [place] [address] Mild intermittent asthma with acute exacerbation Social [...] exacerbation documented in this encounter Care Teams Craft Artist Relationship Specialty Start Date End Date Provider, MD Ravindra [address] [place] [phone] PCP - General Pediatrics 01/26/24 07/23/24 documented as of this encounter
--- OUTSIDE RECORDS SUMMARY | 2025-06-18 07:59 | XMS_ITS | Encounter Summary ---
Author Organization [facility] Address [address] [place] [address] Phone Care Team Providers Care Nurse'S Companion Name Role Phone Provider, Ravindra LINDSAY Primary Care Provider Encounter Details Date Type Department Care Team (Late st Contact Info) Description 05/14/[address] [facility] [place] [address] [place], [place] [id number] Family Medicine, Physician [address] [place] [address] Social History Tobacco Use Types Packs/Day Years [...] on filedocumented in this encounter Care Teams Nurse'S Companion Relationship Specialty Start Date End Date Provider, MD Ravindra [address] [place] [phone] PCP - General Pediatrics 01/26/24 07/23/24 documented as of this encounter
--- OUTSIDE RECORDS SUMMARY | 2025-06-18 07:59 | XMS_ITS | Encounter Summary ---
Author Organization [facility] Address [address] [place] [address] Phone Care Team Providers Care Livery Car Driver Name Role Phone Provider, Ravindra LINDSAY Primary Care Provider [phone] Encounter Details Date Type Department Care Team (Late st Contact Info) Description 03/23/2017 Conversion Encounter [facility] [place] [address] [place] [address] Social History Tobacco Use Types Packs/Day Years [...] on filedocumented in this encounter Care Teams Livery Car Driver Relationship Specialty Start Date End Date Provider, MD Ravindra [address] [place] [phone] PCP - General Pediatrics 01/26/24 07/23/24 documented as of this encounter
--- OUTSIDE RECORDS SUMMARY | 2025-06-18 07:59 | XMS_ITS | Encounter Summary ---
Author Organization [facility] Address [address] [place] [address] Phone Care Team Providers Care Tellers Supervisor Name Role Phone Provider, Ravindra LINDSAY Primary Care Provider [phone] Encounter Details Date Type Department Care Team (Late st Contact Info) Description 12/25/2009 Documentation [facility] [place] [address] [place], [place] [id number] Family Medicine, Physician [address] [place] [address] Social History Tobacco Use Types Packs/Day Years [...] on filedocumented in this encounter Care Teams Tellers Supervisor Relationship Specialty Start Date End Date Provider, MD Ravindra [address] [place] [phone] PCP - General Pediatrics 01/26/24 07/23/24 documented as of this encounter
--- OUTSIDE RECORDS SUMMARY | 2025-06-18 07:59 | XMS_ITS | Encounter Summary ---
Author Organization [facility] Address [address] [place] [address] Phone Care Team Providers Care Soldering Technician Name Role Phone Provider, Ravindra LINDSAY Primary Care Provider [phone] Reason for Visit * Reason Onset Date Comments Med Refill 12/21/2020 Encounter Details Date Type Department Care Team (Late st Contact Info) Description 12/21/2020 Refill [facility] [place] [address] [place] [address] Brandon Lam MD [address] [place] [address] Mild persistent asthma without complication Social History [...] complication documented in this encounter Care Teams Soldering Technician Relationship Specialty Start Date End Date Provider, MD Ravindra [address] [place] [phone] PCP - General Pediatrics 01/26/24 07/23/24 documented as of this encounter
[2025-06-18 08:08] LABS: MANUAL DIFF FLAG NO
[2025-06-18 08:30] LABS: Appearance Urine Clear; Glucose Urine UA Negative (Negative); PH 7.0 (5.0-9.0); Specific Gravity - Urine 1.010 (1.005-1.025)
[2025-06-18 08:43] LABS: Hematocrit 45.7 % (42.0-52.0); Hemoglobin 15.6 g/dl (14.0-18.0); Imm Gran Abs Auto 0.01 X10*3/uL (0.00-0.03); Imm Gran Pct Auto 0.2 % (0.0-0.4); Lymphocytes Absolute Auto 2.0 X10*3/uL (1.2-4.9); Mean Corpuscular HGB Conc 34.1 g/dl (31.0-36.0); Mean Corpuscular Hemoglobin 31.1 pg (27.0-33.0); Mean Corpuscular Volume 91.0 fL (80.0-98.0); NRBC Abs Auto 0.000 X10*3/uL (0.0-0.012); NRBC Pct Auto 0.0 /100WBC (0.0-0.2); Platelet Count 243 X10*3/uL (160-400); Red Blood Count 5.02 X10*6/uL (4.60-5.80); White Blood Count 5.7 X10*3/uL (4.8-10.8)
[2025-06-18 09:09] LABS: Alanine Aminotransferase 22 U/L (0-40); Albumin Level 4.6 g/dL (3.5-5.0); Alkaline Phosphatase 76 U/L (39-117); Anion Gap 12 (12-20); Aspartate Amino Transferase 20 U/L (5-37); Blood Urea Nitrogen 13 mg/dL (9-16); Calcium 10.0 mg/dL (8.4-10.2); Carbon Dioxide 25 mmol/L (22-29); Chloride 108 mmol/L (96-108); Cholesterol 152 mg/dL (<200); Estimated Glomerular Filt Rate > 60; HDL Cholesterol 34 mg/dL (>40); Potassium 4.2 mmol/L (3.3-5.1); Sodium 141 mmol/L (135-145); Total Protein 7.3 g/dL (6.5-8.0); Triglycerides 102 mg/dL (<150)
[2025-06-18 09:25] LABS: Ferritin 101 ng/mL (20-250)
[2025-06-18 09:28] LABS: HBS Num1 1.38 mIU/mL (0-7.99); HBc Num1 0.09 S/CO (0.00-0.79); HBsAGNum1 0.36 S/CO (0.00-0.99); Hepatitis A Antibody IgM 0.21 Index (0-0.79); Hepatitis B Surface Antigen Negative (Negative); ~HepC Num1 0.08 S/CO (0.00-0.79); ~Hepatitis A Antibody IgM Nonreactive (Nonreactive); ~Hepatitis B Surface Antibody NONREACTIVE (Nonreactive); ~Hepatitis C Antibody Nonreactive (Nonreactive)
[2025-06-23 21:49] LABS: Anti Nuclear Antibody Pattern Nuclear, Homogeneous; Anti Nuclear Antibody Screen POSITIVE (NEGATIVE); Anti Nuclear Antibody Titer 1:80 titer
== END 2025-06-18 07:57 | disposition home or self-care (01) ==
LOC: HO.LAB 07:56
DX: Z01.84 Encounter for antibody response examination (principal); Z11.59 Encounter for screening for other viral diseases; G47.33 Obstructive sleep apnea (adult) (pediatric); J45.40 Moderate persistent asthma, uncomplicated; E55.9 Vitamin D deficiency, unspecified; E78.5 Hyperlipidemia, unspecified; R11.0 Nausea; R16.0 Hepatomegaly, not elsewhere classified; R10.11 Right upper quadrant pain
CPT/HCPCS: 36415; 80053; 80061; 81003; 82306; 82390; 82728; 84443; 85025; 86038; 86039; 86704; 86706; 86709; 86803; 87340

== ENCOUNTER 2025-06-25 09:00 | Outpatient (AMB) | payer OTHER, SELFPAY ==
[2025-06-25 09:16] VITALS: BP 132/70; PULSE 84; O2SAT 98; BMI 38.4
--- NOTE | 2025-06-25 09:16 | AM.OFFWIN_ITS ---
Intake Vital Signs 3 06/25/25 09:16 Height 5 ft 9 in Weight 260 lb BMI 38.4 BP 132/70 Blood Pressure Location Rt brachial Position Sitting Pulse 84 Pulse Source Pulse Oximeter Pulse Oximetry (%) 98 Oxygen Delivery Method Room Air Intake Visit Reasons: EP Left shoulder pain Intake Note: Patient presents c/o left shoulder pain related to trying to catch himself while falling at work this morning. Patient Tobacco Use Status: Never used Tobacco Allergies No Known Allergies Allergy (Verified 06/26/25 15:55) Medication List - Last Reconciled 06/25/25 by Dylon Whiting MD albuterol sulfate 90 mcg/actuation (Ventolin HFA) 2 puffs inhalation Q4-6H PRN budesonide-formoterol 80-4.5 mcg/actuation (Symbicort) 2 puffs inhalation BID cholecalciferol (vitamin D3) 50 mcg PO DAILY omeprazole 40 mg PO DAILY Do you need a note to return to daycare/school/sports/work: Yes HPI EP Left shoulder pain 2 HPI0 Details Patient is 19-year-old gentleman came in today to be evaluated for left shoulder pain Patient was at work where he lost his balance and had to stop the fall holding onto something with his left arm Incident happened this morning Patient came in for evaluation On examination he has full range of motion in both shoulders His pain is located left trapezius muscle and left-sided upper chest area On palpation there is no tenderness around the shoulder PFSH Medical History ALBERTO (obstructive sleep apnea) Asthma Surgical History No pertinent past surgical history Family History Mother Arthritis Father High cholesterol Social History Household Members Other:: Parents and two sisters Housing: House Alcohol intake: current Alcohol intake frequency: a few times a month Patient Tobacco Use Status: Never used Tobacco e-Cigarette/Vaping Use: Never Used Substance Use Type: Marijuana service: No Current occupational status: employed 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 Soreness with palpation Resp Effort & Inspection: normal respiratory effort and able to speak in complete sentences Auscultation: clear to auscultation bilaterally Back/Spine/Pelvis Back/spine/pelvis image: 2 1. Site of pain, neck is supple, shoulder with full range of motion 2. Neuro General: patient oriented x3 Psych Mental Status: mental status grossly normal Assessment & Plan Assessment & Plan (1) Strain of left trapezius muscle: Code(s): S46.812A - Strain of other muscles, fascia and tendons at shoulder and upper arm level, left arm, initial encounter Qualifiers: Encounter type: initial encounter Qualified Code(s): S46.812A - Strain of other muscles, fascia and tendons at shoulder and upper arm level, left arm, initial encounter Plan Patient has developed trapezius strain and anterior chest muscle strain Muscle relaxer sent to be taken at night as needed Patient was instructed to take it easy for few days and follow up with primary care 3 days off given from work Medications: New 2 diclofenac sodium take it with food 75 mg PO BID 14 tabs 0RF pain 7 days cyclobenzaprine 7.5 mg PO BEDTIME PRN 10 tabs 0RF muscle spasm Coding Level of Care Code Est Pt Level 3 (81360) Diagnoses Strain of left trapezius muscle, initial encounter S46.812A Encounter type: initial encounter
== END 2025-06-25 09:33 | disposition home or self-care (01) ==
PROVIDERS: Visit Provider Internal Medicine
DX: S46.812A Strain of other muscles, fascia and tendons at shoulder and upper arm level, left arm, initial encounter (principal)

== ENCOUNTER → 2025-06-25 09:00 | Outpatient (BNVA) | payer OTHER, SELFPAY | PROVIDERS: Visit Provider Internal Medicine | DX: S46.812A Strain of other muscles, fascia and tendons at shoulder and upper arm level, left arm, initial encounter (principal) | CPT/HCPCS: 99212 ==

== ENCOUNTER 2025-06-26 15:32 | Outpatient (AMB) | payer OTHER, SELFPAY ==
--- NOTE | 2025-06-26 15:39 | MHC.PC.OV ---
Vital Signs 06/26/25 15:40 Height 5 ft 9 in Weight 258 lb 4 oz BMI 38.1 BP 134/60 Blood Pressure Location Lt brachial Position Sitting Respiration 18 Pulse 83 Pulse Source Pulse Oximeter Temp Source Temporal Artery Scan Pulse Oximetry (%) 97 Oxygen Delivery Method Room Air Intake Visit Reasons: 2 month f/u Lead Vulcanizing Operator Required: No Accompanied by: Self / Same As Patient Allergies No Known Allergies Allergy (Verified 06/26/25 15:55) Medication List - Last Reconciled 06/26/25 by KIRAN Vasquez albuterol sulfate 90 mcg/actuation (Ventolin HFA) 2 puffs inhalation Q4-6H PRN budesonide-formoterol 80-4.5 mcg/actuation (Symbicort) 2 puffs inhalation BID cholecalciferol (vitamin D3) 50 mcg PO DAILY cyclobenzaprine 7.5 mg PO BEDTIME PRN diclofenac sodium 75 mg PO BID 7 days omeprazole 40 mg PO DAILY Tobacco use date assessed: 06/26/25 Dental Screening Dental Screen Date: 06/26/25 Did you have a dental visit in the last 12 months?: No Did you have a dental problem in the last 6 months where you did not have access to dental care?: No Was dental information given to patient?: No HPI HPI Comments History of Present Illness Details The patient is a 19 year old individual presenting for follow-up of abdominal pain and evaluation of a new injury. The patient has ongoing intermittent abdominal pain but denies recent emesis, which was a prior symptom. Past workup revealed a mildly enlarged liver and a nonspecific positive lab test. Regarding lifestyle, the patient reports having cut back on smoking and is making efforts to eat better. The patient denies current alcohol consumption, stating the last instance was a small amount at the beginning of the month. Health Maintenance - Discussed lifestyle modifications, including reducing smoking, abstaining from alcohol, and improving diet. - A referral to gastroenterology for further evaluation of abdominal pain was discussed. - New lab tests were ordered for further workup. Social History - Tobacco Use: The patient reports having cut back on smoking. - Alcohol Use: The patient reports no longer drinking alcohol, with the last consumption being a small amount at the beginning of the current month. - Diet: The patient reports trying to eat better. - Employment: The patient is employed and sustained a recent work-related injury. Results - Labs: A prior positive but nonspecific lab test was mentioned. - Imaging/Other: A prior finding of a mildly enlarged liver was discussed. 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 Cognitive needs: No Hearing needs: No Vision needs: No Questionnaire Thrive Questionnaire Date Thrive assessed: 06/26/25 I am a: Patient What is your living situation today?: I have a steady place to live Within the past 12 months, did the food you bought not last and you didn't have the money to get more?: Never true Within the past 12 months, did you worry whether your food would run out before you got money to buy more?: Never true Do you have trouble paying for medicines?: No Do you have trouble getting transportation to medical appointments?: No Do you have trouble paying your heating and electricity bill?: No Do you have trouble taking care of your child, family member or friend?: No Do you have trouble with day-to-day activities such as bathing, preparing meals, shopping, managing finances, etc.?: No Are you currently unemployed and looking for a job?: No Are you interested in more education?: No Please select the resources that you would like help with: None Currently or been in a relationship where the following occur: No concerns reported THRIVE Score: 0 AUDIT C Alcohol Use Questionnaire (AUDIT-C) 1. How often do you have a drink containing alcohol?: 2-4 times a month 2. How many drinks containing alcohol do you have on a typical day when you are drinking?: 3 or 4 3. How often do you have six or more drinks on one occasion?: Less than monthly Total Score: 4 SHADI-7 AMB Questionnaire SHADI-7 Date SHADI - 7 assessed: 03/14/25 Feeling nervous, anxious, or on edge: 0 = Not at all Not being able to stop or control worryin = Not at all Worrying too much about different things: 0 = Not at all Trouble relaxin = Not at all Being so restless that it is hard to sit still: 1 = Several days Becoming easily annoyed or irritable: 0 = Not at all Feeling afraid as if something awful might happen: 0 = Not at all Total SHADI-7 score (0-4 normal; 5-9 mild; 10-14 moderate; 15-21 severe): 1 Source: Developed by Drs. Jah Leyva, Lilly Tran, Won Murphy and colleagues, with an educational juani from [employer]. Review of Systems Narrative Review of Systems - Gastrointestinal: Reports intermittent abdominal pain. Denies emesis. - Musculoskeletal: Reports acute back pain following a work-related injury, which is tender to touch. Const Denies body aches, Denies chills, Denies fever(s), Denies headache(s) and Denies poor appetite Eyes Reports no additional complaints ENT Denies dysphagia, Denies dizziness, Denies headache(s) and Denies odynophagia Card Denies chest pain, Denies syncope, Denies edema, Denies irregular heart rhythm, Denies lightheadedness and Denies dyspnea Resp Denies cough and Denies dyspnea GI Reports abdominal pain (right upper quadrant intermittently), Denies constipation, Denies dysphagia, Reports heartburn, Denies diarrhea, Denies nausea, Denies odynophagia and Reports vomiting (recurrent morning vomits) Reports no additional complaints Musc Reports no additional complaints and Denies abnormal gait Skin/Breast Reports system reviewed and no additional complaints, except as documented Neuro Denies Abnormal speech present, Denies abnormal gait, Denies dizziness, Denies syncope and Denies headache(s) Psych Reports no additional complaints Physical exam (Primary Care) Vital Signs: Last Vital Signs Pulse 83 06/26/25 15:40 Resp 18 06/26/25 15:40 BP 134/60 06/26/25 15:40 Pulse Ox 97 06/26/25 15:40 Oxygen Delivery Method Room Air 11/20/25 15:40 BMI result Body Mass Index 38.1 Tobacco/Smoking Status: Tobacco use Status Tobacco use date assessed 06/26/25 06/26/25 15:51 Patient Tobacco Use Status Never used Tobacco 06/26/25 15:51 e-Cigarette/Vaping Use Never Used 06/26/25 15:51 Thrive Assessment: Date of Thrive Assessment Date Thrive assessed 06/26/25 06/26/25 15:51 Currently or been in a relationship where the following occur: No concerns reported Narrative Physical Exam - Musculoskeletal: Tenderness to palpation over the posterior thoracic region. Const General: healthy appearing, no acute distress, alert and awake Nutritional Appearance: well nourished Orientation/consciousness: oriented to person, oriented to place and oriented to time HENMT Ears: hearing grossly normal bilaterally General nose exam: Normal external nose present Eyes Conjunctivae: conjunctivae normal Sclerae: sclerae normal Pupils: Equal, round and reactive pupils present Neck Neck: Yes no lymphadenopathy and Yes no JVD Thyroid: Thyroid normal Carotids: no bruits Resp Effort & Inspection: normal respiratory effort and not tachypneic Auscultation: no crackles, no rales, no rhonchi and no wheezes Cardio Rate: regular rate Rhythm: regular rhythm Heart sounds: S1 normal heart sound present, S2 normal heart sound present, no murmurs and normal S1 and S2 GI Palpation (GI): Soft to palpation, nontender, no hepatomegaly and no splenomegaly Auscultation: normal bowel sounds Skin General skin exam: no rashes or lesions noted and dry skin Neuro General: oriented to person, oriented to place and oriented to time Cranial nerves: Yes Equal, round and reactive pupils present Speech: No Abnormal speech present Gait exam (Neuro): Normal gait present Motor exam (neuro): no tremor noted Extrem Right upper extremity: full ROM Left upper extremity: full ROM Right lower extremity: full ROM; no edema Left lower extremity: full ROM; no edema Psych Mental Status: mental status grossly normal Speech and movement: Normal speech and movement present Affect: normal affect Attitude: cooperative Thought process: Normal thought process present Results Reviewed Results Reviewed: Laboratory Tests 06/18/25 06/18/25 08:00 08:06 WBC 5.7 RBC 5.02 Hgb 15.6 Hct 45.7 MCV 91.0 MCH 31.1 MCHC 34.1 RDW 12.4 Plt Count 243 Sodium 141 Potassium 4.2 Chloride 108 Carbon Dioxide 25 Anion Gap 12 BUN 13 Creatinine 0.91 Estimated GFR > 60 Fasting Glucose 103 H Calcium 10.0 Ferritin 101 Total Bilirubin 0.7 AST 20 ALT 22 Alkaline Phosphatase 76 Total Protein 7.3 Albumin 4.6 Ceruloplasmin 22 Triglycerides 102 Cholesterol 152 LDL Cholesterol, Calc 98 HDL Cholesterol 34 L 25-OH Vitamin D Total 13.9 L TSH 1.90 Urine Color Yellow Urine Appearance Clear Urine pH 7.0 Ur Specific [place] 1.010 Urine Protein Negative Urine Glucose (UA) Negative Urine Ketones Negative Urine Blood Negative Urine Nitrite Negative Ur Leukocyte Esterase Negative SOFIA Screen POSITIVE A SOFIA Titer 1:80 H SOFIA Titer 2 1:40 H SOFIA Pattern Nuclear, Homogeneous A SOFIA Pattern 2 Nuclear, Speckled A Hepatitis A IgM Ab Nonreactive Hep Bs Antigen Negative Hep Bs Antibody NONREACTIVE Hep B Core Total Ab Nonreactive Hepatitis C Ab (EIA) Nonreactive Coding Level of Care Code Est Pt Level 4 (14128) Diagnoses RUQ abdominal pain R10.11 Nonalcoholic fatty liver K76.0 Recurrent vomiting R11.10 Heartburn R12 Positive SOFIA (antinuclear antibody) R76.89 Dry mouth R68.2 Vitamin D deficiency E55.9 Time Spent (min) 36 Assessment & Plan Assessment & Plan (1) RUQ abdominal pain: Code(s): R10.11 - Right upper quadrant pain Category: Medical Plan: nonalcoholic fatty liver noted on US, but no other acute findings. (2) Nonalcoholic fatty liver: Code(s): K76.0 - Fatty (change of) liver, not elsewhere classified Category: Medical Plan: abdominal ultrasound 01/28/25. showed Liver is slightly enlarged measuring 17.9 cm. Normal echogenicity. No focal lesion. Lifestyle modifications, including dietary changes and weight management, are recommended to address liver health. Further liver workup, including blood tests, is planned to monitor liver function. (3) Recurrent vomiting: Code(s): R11.10 - Vomiting, unspecified Category: Medical Plan: Suspected that the patient recurrent vomiting in the mornings is related to marijuana use at night. The patient was encouraged to cease marijuana used for a month to see if vomiting subsided. The patient reports that he cut down significantly and he is seeing an improvement. He has not vomited since cutting down. (4) Heartburn: Code(s): R12 - Heartburn Category: Medical Plan: Reinforced dietary restrictions continue omeprazole 40 mg daily (5) Positive SOFIA (antinuclear antibody): Code(s): R76.89 - Other specified abnormal immunological findings in serum Category: Medical Plan: Low positive SOFIA, with undetermined symptoms from dry mouth to right upper quadrant intermittent pain. We will repeat an add some follow up labs to further evaluate. (6) Dry mouth: Code(s): R68.2 - Dry mouth, unspecified Category: Medical Plan: The patient has a low positive SOFIA and he is complaining of dry mouth. Labs ordered to further evaluate (7) Vitamin D deficiency: Code(s): E55.9 - Vitamin D deficiency, unspecified Category: Medical Plan: Patient reports that he is inconsistent with medication. Encouraged cholecalciferol 50 mcg daily Plan Plan Patient was informed and verbally consented to the use of an ambient scribe for clinic note documentation during this visit. 1. Abdominal Pain And Hepatomegaly The patient continues to have intermittent abdominal pain, though emesis has resolved. Given the history of mild hepatomegaly and a nonspecific lab finding, further evaluation is warranted. A referral will be placed to a correctional substance abuse counselor for consultation. New labs will be ordered, and the patient will follow up to review the results. Discussion Notes I reviewed with the patient the persistent abdominal pain, prior finding of a mildly enlarged liver, and the nonspecific nature of a past positive lab result. I recommended a referral to a GI specialist for further evaluation and will order new labs. Patient Instructions - Please get the new lab work done as soon as you can. - A referral has been made to a stomach specialist (correctional substance abuse counselor). Their office will call you to schedule an appointment. - Schedule a follow-up appointment with us to go over your lab results. Orders: Orders Smooth Muscle Antibody 06/26/25 K76.0 - Fatty (change of) liver, not elsewhere classified, R10.11 - Right upper quadrant pain, R16.0 - Hepatomegaly, not elsewhere classified, R68.2 - Dry mouth, unspecified, R76.89 - Other specified abnormal immunological findings in serum Rheumatoid Factor 06/26/25 K76.0 - Fatty (change of) liver, not elsewhere classified, R10.11 - Right upper quadrant pain, R16.0 - Hepatomegaly, not elsewhere classified, R68.2 - Dry mouth, unspecified, R76.89 - Other specified abnormal immunological findings in serum Sm Sm/[employer]TINGS [employer]ER Antibodies 06/26/25 K76.0 - Fatty (change of) liver, not elsewhere classified, R10.11 - Right upper quadrant pain, R16.0 - Hepatomegaly, not elsewhere classified, R68.2 - Dry mouth, unspecified, R76.89 - Other specified abnormal immunological findings in serum Albumin Globulin Ratio 06/26/25 K76.0 - Fatty (change of) liver, not elsewhere classified, R10.11 - Right upper quadrant pain, R16.0 - Hepatomegaly, not elsewhere classified, R68.2 - Dry mouth, unspecified, R76.89 - Other specified abnormal immunological findings in serum Complete Blood Count Auto Diff 4 Months E55.9 - Vitamin D deficiency, unspecified, E78.5 - Hyperlipidemia, unspecified, J45.40 - Moderate persistent asthma, uncomplicated, K76.0 - Fatty (change of) liver, not elsewhere classified, R09.81 - Nasal congestion, R12 - Heartburn, R16.0 - Hepatomegaly, not elsewhere classified, R68.2 - Dry mouth, unspecified, R76.89 - Other specified abnormal immunological findings in serum Comprehensive [place]. Panel Fast 4 Months E55.9 - Vitamin D deficiency, unspecified, E78.5 - Hyperlipidemia, unspecified, J45.40 - Moderate persistent asthma, uncomplicated, K76.0 - Fatty (change of) liver, not elsewhere classified, R09.81 - Nasal congestion, R12 - Heartburn, R16.0 - Hepatomegaly, not elsewhere classified, R68.2 - Dry mouth, unspecified, R76.89 - Other specified abnormal immunological findings in serum Lipid Panel 4 Months E55.9 - Vitamin D deficiency, unspecified, E78.5 - Hyperlipidemia, unspecified, J45.40 - Moderate persistent asthma, uncomplicated, K76.0 - Fatty (change of) liver, not elsewhere classified, R09.81 - Nasal congestion, R12 - Heartburn, R16.0 - Hepatomegaly, not elsewhere classified, R68.2 - Dry mouth, unspecified, R76.89 - Other specified abnormal immunological findings in serum UA CC w/rflx Micro + Cult 4 Months E55.9 - Vitamin D deficiency, unspecified, E78.5 - Hyperlipidemia, unspecified, J45.40 - Moderate persistent asthma, uncomplicated, K76.0 - Fatty (change of) liver, not elsewhere classified, R09.81 - Nasal congestion, R12 - Heartburn, R16.0 - Hepatomegaly, not elsewhere classified, R68.2 - Dry mouth, unspecified, R76.89 - Other specified abnormal immunological findings in serum Liver Fibrosis Pnl 06/26/25 R16.0 - Hepatomegaly, not elsewhere classified Anti DNA DS Antibody 06/26/25 K76.0 - Fatty (change of) liver, not elsewhere classified, R10.11 - Right upper quadrant pain, R16.0 - Hepatomegaly, not elsewhere classified, R68.2 - Dry mouth, unspecified, R76.89 - Other specified abnormal immunological findings in serum Cyclic Citrullinated Peptide 06/26/25 K76.0 - Fatty (change of) liver, not elsewhere classified, R10.11 - Right upper quadrant pain, R16.0 - Hepatomegaly, not elsewhere classified, R68.2 - Dry mouth, unspecified, R76.89 - Other specified abnormal immunological findings in serum Sjogren's Antibodies 06/26/25 K76.0 - Fatty (change of) liver, not elsewhere classified, R10.11 - Right upper quadrant pain, R16.0 - Hepatomegaly, not elsewhere classified, R68.2 - Dry mouth, unspecified, R76.89 - Other specified abnormal immunological findings in serum SOFIA Reflex Titer and Pattern 06/26/25 K76.0 - Fatty (change of) liver, not elsewhere classified, R10.11 - Right upper quadrant pain, R16.0 - Hepatomegaly, not elsewhere classified, R68.2 - Dry mouth, unspecified, R76.89 - Other specified abnormal immunological findings in serum TSH reflex Free T4 4 Months E55.9 - Vitamin D deficiency, unspecified, E78.5 - Hyperlipidemia, unspecified, J45.40 - Moderate persistent asthma, uncomplicated, K76.0 - Fatty (change of) liver, not elsewhere classified, R09.81 - Nasal congestion, R12 - Heartburn, R16.0 - Hepatomegaly, not elsewhere classified, R68.2 - Dry mouth, unspecified, R76.89 - Other specified abnormal immunological findings in serum Vitamin D 25-OH Total 4 Months E55.9 - Vitamin D deficiency, unspecified, E78.5 - Hyperlipidemia, unspecified, J45.40 - Moderate persistent asthma, uncomplicated, K76.0 - Fatty (change of) liver, not elsewhere classified, R09.81 - Nasal congestion, R12 - Heartburn, R16.0 - Hepatomegaly, not elsewhere classified, R68.2 - Dry mouth, unspecified, R76.89 - Other specified abnormal immunological findings in serum Referrals Gastroenterology Referral K76.0 - Fatty (change of) liver, not elsewhere classified, R10.11 - Right upper quadrant pain, R16.0 - Hepatomegaly, not elsewhere classified, R76.89 - Other specified abnormal immunological findings in serum Medications: Refilled cyclobenzaprine 7.5 mg PO BEDTIME PRN 30 tabs 0RF muscle spasm
[2025-06-26 15:40] VITALS: BP 134/60; PULSE 83; RESP 18; O2SAT 97; BMI 38.1
--- OUTSIDE RECORDS SUMMARY | 2025-06-26 20:39 | XMS_ITS | Encounter Summary ---
Author Organization [facility] Address [address] [place] [id number] Phone Care Team Providers Care Dredge Captain Name Role Phone Provider, Ravindra LINDSAY Primary Care Provider [phone] Reason for Visit * Reason Comments Med Refill Encounter Details Date Type Department Care Team (Late st Contact Info) Description 09/10/2018 Refill [facility] [place] [address] [place] [address] Brandon Lam MD [address] [place] [address] Mild intermittent asthma with acute exacerbation Social [...] exacerbation documented in this encounter Care Teams Dredge Captain Relationship Specialty Start Date End Date Provider, MD Ravindra [address] [place] [phone] PCP - General Pediatrics 01/26/24 07/23/24 documented as of this encounter
--- OUTSIDE RECORDS SUMMARY | 2025-06-26 20:39 | XMS_ITS | Encounter Summary ---
Author Organization [facility] Address [address] [place] [address] Phone Care Team Providers Care Chauffeur Name Role Phone Provider, Ravindra LINDSAY Primary Care Provider [phone] Encounter Details Date Type Department Care Team (Late st Contact Info) Description 07/09/2015 Documentation [facility] [place] [address] [place], [place] [phone] Family Medicine, Physician [address] [place] [address] Social History Tobacco Use Types Packs/Day Years [...] on filedocumented in this encounter Care Teams Chauffeur Relationship Specialty Start Date End Date Provider, MD Ravindra [address] [place] [phone] PCP - General Pediatrics 01/26/24 07/23/24 documented as of this encounter
--- OUTSIDE RECORDS SUMMARY | 2025-06-26 20:39 | XMS_ITS | Encounter Summary ---
Author Organization [facility] Address [address] [place] [address] Phone Care Team Providers Care Rn Shift Mgr Name Role Phone Provider, Ravindra LINDSAY Primary Care Provider [phone] Encounter Details Date Type Department Care Team (Late st Contact Info) Description 08/10/2016 Documentation [facility] [place] [place] Family Medicine [address] [place], [place] [phone] Family Medicine, Physician [address] [place] [address] Social History Tobacco Use Types Packs/Day Years [...] on filedocumented in this encounter Care Teams Rn Shift Mgr Relationship Specialty Start Date End Date Provider, MD Ravindra [address] [place] [phone] PCP - General Pediatrics 01/26/24 07/23/24 documented as of this encounter
--- OUTSIDE RECORDS SUMMARY | 2025-06-26 20:39 | XMS_ITS | Encounter Summary ---
Author Organization [facility] Address [address] [place] [address] Phone Care Team Providers Care Client Success Specialist Name Role Phone Provider, Ravindra LINDSAY Primary Care Provider [phone] Encounter Details Date Type Department Care Team (Late st Contact Info) Description 07/26/2016 Documentation [facility] [place] Family Medicine [address] [place], [place] [phone] Family Medicine, Physician [address] [place] [address] Social History Tobacco Use Types Packs/Day Years [...] on filedocumented in this encounter Care Teams Client Success Specialist Relationship Specialty Start Date End Date Provider, MD Ravindra [address] [place] [phone] PCP - General Pediatrics 01/26/24 07/23/24 documented as of this encounter
--- OUTSIDE RECORDS SUMMARY | 2025-06-26 20:39 | XMS_ITS | Encounter Summary ---
Author Organization [facility] Address [address] [place] [address] Phone Care Team Providers Care Hr Recruiter Name Role Phone Provider, Ravindra LINDSAY Primary Care Provider [phone] Encounter Details Date Type Department Care Team (Late st Contact Info) Description 07/09/2015 Documentation [facility] [place] Family Medicine [address] [place], [place] [phone] Family Medicine, Physician [address] [place] [address] Social History Tobacco Use Types Packs/Day Years [...] on filedocumented in this encounter Care Teams Hr Recruiter Relationship Specialty Start Date End Date Provider, MD Ravindra [address] [place] [phone] PCP - General Pediatrics 01/26/24 07/23/24 documented as of this encounter
--- OUTSIDE RECORDS SUMMARY | 2025-06-26 20:40 | XMS_ITS | Encounter Summary ---
Author Organization [facility] Address [address] [place] [address] Phone Care Team Providers Care Drop Board Man Name Role Phone Provider, Ravindra LINDSAY Primary Care Provider [phone] Reason for Visit * Reason Onset Date Comments Med Refill 12/21/2020 Encounter Details Date Type Department Care Team (Late st Contact Info) Description 12/21/2020 Refill [facility] [place] [address] [place] [address] Brandon Lam MD [address] [place] [address] Mild persistent asthma without complication Social History [...] complication documented in this encounter Care Teams Drop Board Man Relationship Specialty Start Date End Date Provider, MD Ravindra [address] [place] [phone] PCP - General Pediatrics 01/26/24 07/23/24 documented as of this encounter
--- OUTSIDE RECORDS SUMMARY | 2025-06-26 20:40 | XMS_ITS | Encounter Summary ---
Author Organization [facility] Address [address] [place] [address] Phone Care Team Providers Care Field Counsel Name Role Phone Provider, Ravindra LINDSAY Primary Care Provider [phone] Encounter Details Date Type Department Care Team (Late st Contact Info) Description 05/14/[address] [facility] [place] Family Medicine [address] [place], [place] [id number] Family Medicine, Physician [address] [place] [address] Social History Tobacco Use Types Packs/Day Years [...] filedocumented in this encounter Care Teams Field Counsel Relationship Specialty Start Date End Date Provider, MD Ravindra [address] [place] [phone] PCP - General Pediatrics 01/26/24 07/23/24 documented as of this encounter
--- OUTSIDE RECORDS SUMMARY | 2025-06-26 20:40 | XMS_ITS | Encounter Summary ---
Author Organization [facility] Address [address] [place] [address] Phone Care Team Providers Care Graphic Technician Name Role Phone Provider, Ravindra LINDSAY Primary Care Provider [phone] Encounter Details Date Type Department Care Team (Late st Contact Info) Description 05/14/2013 Documentation [facility] [place] [address] [place], [place] [id number] Family Medicine, Physician [address] [place] [address] Social History Tobacco Use Types Packs/Day Years [...] on filedocumented in this encounter Care Teams Graphic Technician Relationship Specialty Start Date End Date Provider, MD Ravindra [address] [place] [phone] PCP - General Pediatrics 01/26/24 07/23/24 documented as of this encounter
--- OUTSIDE RECORDS SUMMARY | 2025-06-26 20:40 | XMS_ITS | Encounter Summary ---
Author Organization [facility] Address [address] [place] [address] Phone Care Team Providers Care Spray Booth Operator Name Role Phone Provider, Ravindra LINDSAY Primary Care Provider [phone] Encounter Details Date Type Department Care Team (Late st Contact Info) Description 12/25/2009 Documentation [facility] [place] [address] [place], [place] [phone] Family Medicine, Physician [address] [place] [address] Social History Tobacco Use Types Packs/Day Years [...] on filedocumented in this encounter Care Teams Spray Booth Operator Relationship Specialty Start Date End Date Provider, MD Ravindra [address] [place] [phone] PCP - General Pediatrics 01/26/24 07/23/24 documented as of this encounter
--- OUTSIDE RECORDS SUMMARY | 2025-06-26 20:40 | XMS_ITS | Clinical Summary ---
Author Organization [facility] Address [address] [place] [address] Phone Care Team Providers Care Grain Oilseed Or Pasture Farm Worker Name Role Phone Unavailable Primary Care Provider [...] years. He used his sisters via the [employer] machine last night. He did not sleep [...] Vaccine Completed 11/12/2019, 015 Insurance NON PCC [facility]
--- OUTSIDE RECORDS SUMMARY | 2025-06-26 20:40 | XMS_ITS | Encounter Summary ---
Author Organization [facility] Address [address] [place] [address] Phone Care Team Providers Care Water Plant Pump Operator Supervisor Name Role Phone Provider, Ravindra LINDSAY Primary Care Provider [phone] Encounter Details Date Type Department Care Team (Late st Contact Info) Description 03/23/2017 Conversion Encounter [facility] [place] [address] [place] [address] Social History Tobacco Use Types Packs/Day Years [...] on filedocumented in this encounter Care Teams Water Plant Pump Operator Supervisor Relationship Specialty Start Date End Date Provider, MD Ravindra [address] [place] [phone] PCP - General Pediatrics 01/26/24 07/23/24 documented as of this encounter
--- OUTSIDE RECORDS SUMMARY | 2025-06-26 20:40 | XMS_ITS | Encounter Summary ---
Author Organization [facility] Address [address] [place] [address] Phone Care Team Providers Care Elementary Summer School Teacher Name Role Phone Provider, Ravindra LINDSAY Primary Care Provider [phone] Encounter Details Date Type Department Care Team (Late st Contact Info) Description 09/01/2016 Documentation [facility] [place] [address] [place], [place] [phone] Family Medicine, Physician [address] [place] [address] Social History Tobacco Use Types Packs/Day Years [...] on filedocumented in this encounter Care Teams Elementary Summer School Teacher Relationship Specialty Start Date End Date Provider, MD Ravindra [address] [place] [phone] PCP - General Pediatrics 01/26/24 07/23/24 documented as of this encounter
== END 2025-06-26 16:19 | disposition home or self-care (01) ==
LOC: HO.HMCH 15:33
DX: R10.11 Right upper quadrant pain (principal); K76.0 Fatty (change of) liver, not elsewhere classified; R11.10 Vomiting, unspecified; R12 Heartburn; R76.89 Other specified abnormal immunological findings in serum; R68.2 Dry mouth, unspecified; E55.9 Vitamin D deficiency, unspecified

== ENCOUNTER → 2025-06-26 15:32 | Outpatient (BNVA) | payer OTHER, SELFPAY | DX: R16.0 Hepatomegaly, not elsewhere classified (principal); R76.89 Other specified abnormal immunological findings in serum; K76.0 Fatty (change of) liver, not elsewhere classified; R10.11 Right upper quadrant pain; R11.0 Nausea; R68.2 Dry mouth, unspecified; R12 Heartburn; J45.40 Moderate persistent asthma, uncomplicated; G47.33 Obstructive sleep apnea (adult) (pediatric); R09.81 Nasal congestion; Z09 Encounter for follow-up examination after completed treatment for conditions other than malignant neoplasm | CPT/HCPCS: 99212 ==

== ENCOUNTER 2025-07-14 14:51 | Outpatient (REF) | payer OTHER, SELFPAY ==
--- OUTSIDE RECORDS SUMMARY | 2025-07-15 00:14 | XMS_ITS | Encounter Summary ---
Author Organization [facility] Address [address] [place] [address] Phone Care Team Providers Care Web Design Intern Name Role Phone Provider, Ravindra LINDSAY Primary Care Provider [phone] Reason for Visit * Reason Onset Date Comments Med Refill 12/21/2020 Encounter Details Date Type Department Care Team (Late st Contact Info) Description 12/21/2020 Refill [facility] [place] [address] [place] [address] Brandon Lam MD [address] [place] [address] Mild persistent asthma without complication Social History [...] complication documented in this encounter Care Teams Web Design Intern Relationship Specialty Start Date End Date Provider, MD Ravindra [address] [place] [phone] PCP - General Pediatrics 01/26/24 07/23/24 documented as of this encounter
--- OUTSIDE RECORDS SUMMARY | 2025-07-15 00:14 | XMS_ITS | Encounter Summary ---
Author Organization [facility] Address [address] [place] [address] Phone Care Team Providers Care Condominium Manager Name Role Phone Provider, Ravindra LINDSAY Primary Care Provider [phone] Encounter Details Date Type Department Care Team (Late st Contact Info) Description 03/23/2017 Conversion Encounter [facility] [place] [address] [place] [address] Social History Tobacco Use Types Packs/Day Years [...] on filedocumented in this encounter Care Teams Condominium Manager Relationship Specialty Start Date End Date Provider, MD Ravindra [address] [place] [phone] PCP - General Pediatrics 01/26/24 07/23/24 documented as of this encounter
--- OUTSIDE RECORDS SUMMARY | 2025-07-15 00:14 | XMS_ITS | Encounter Summary ---
Author Organization [facility] Address [address] [place] [address] Phone Care Team Providers Care Boom Boss Name Role Phone Provider, Ravindra LINDSAY Primary Care Provider [phone] Encounter Details Date Type Department Care Team (Late st Contact Info) Description 07/26/2016 Documentation [facility] [place] Family Medicine [address] [place], [place] [phone] Family Medicine, Physician [address] [place] [address] Social History Tobacco Use Types Packs/Day Years [...] on filedocumented in this encounter Care Teams Boom Boss Relationship Specialty Start Date End Date Provider, MD Ravindra [address] [place] [phone] PCP - General Pediatrics 01/26/24 07/23/24 documented as of this encounter
--- OUTSIDE RECORDS SUMMARY | 2025-07-15 00:14 | XMS_ITS | Encounter Summary ---
Author Organization [facility] Address [address] [place] [address] Phone Care Team Providers Care Curtain Inspector Name Role Phone Provider, Ravindra LINDSAY Primary Care Provider Encounter Details Date Type Department Care Team (Late st Contact Info) Description 12/25/2009 Documentation [facility] [place] Family Medicine [address] [place], [place] [phone] Family Medicine, Physician [address] [place] [address] Social History Tobacco Use Types Packs/Day Years [...] on filedocumented in this encounter Care Teams Curtain Inspector Relationship Specialty Start Date End Date Provider, MD Ravindra [address] [place] [phone] PCP - General Pediatrics 01/26/24 07/23/24 documented as of this encounter
--- OUTSIDE RECORDS SUMMARY | 2025-07-15 00:14 | XMS_ITS | Encounter Summary ---
Author Organization [facility] Address [address] [place] [address] Phone Care Team Providers Care Print Graphic Designer Name Role Phone Provider, Ravindra LINDSAY Primary Care Provider [phone] Encounter Details Date Type Department Care Team (Late st Contact Info) Description 07/09/2015 Documentation [facility] [place] Family Medicine [address] [place], [place] [phone] Family Medicine, Physician [address] [place] [address] Social History Tobacco Use Types Packs/Day Years [...] on filedocumented in this encounter Care Teams Print Graphic Designer Relationship Specialty Start Date End Date Provider, MD Ravindra [address] [place] [phone] PCP - General Pediatrics 01/26/24 07/23/24 documented as of this encounter
--- OUTSIDE RECORDS SUMMARY | 2025-07-15 00:14 | XMS_ITS | Encounter Summary ---
Author Organization [facility] Address [address] [place] [address] Phone Care Team Providers Care Director Of Medical Staff Services Name Role Phone Provider, Ravindra LINDSAY Primary Care Provider [phone] Reason for Visit * Reason Comments Med Refill Encounter Details Date Type Department Care Team (Late st Contact Info) Description 09/10/2018 Refill [facility] [place] [address] [place] [address] Brandon Lam MD [address] [place] [address] Mild intermittent asthma with acute exacerbation Social [...] exacerbation documented in this encounter Care Teams Director Of Medical Staff Services Relationship Specialty Start Date End Date Provider, MD Ravindra [address] [place] [phone] PCP - General Pediatrics 01/26/24 07/23/24 documented as of this encounter
--- OUTSIDE RECORDS SUMMARY | 2025-07-15 00:14 | XMS_ITS | Encounter Summary ---
Author Organization [facility] Address [address] [place] [address] Phone Care Team Providers Care International Logistics Analyst Name Role Phone Provider, Ravindra LINDSAY Primary Care Provider [phone] Encounter Details Date Type Department Care Team (Late st Contact Info) Description 07/09/2015 Documentation [facility] [place] Family Medicine [address] [place], [place] [phone] Family Medicine, Physician [address] [place] [address] Social History Tobacco Use Types Packs/Day Years [...] on filedocumented in this encounter Care Teams International Logistics Analyst Relationship Specialty Start Date End Date Provider, MD Ravindra [address] [place] [phone] PCP - General Pediatrics 01/26/24 07/23/24 documented as of this encounter
--- OUTSIDE RECORDS SUMMARY | 2025-07-15 00:14 | XMS_ITS | Encounter Summary ---
Author Organization [facility] Address [address] [place] [address] Phone Care Team Providers Care Editor In Chief Newspaper Name Role Phone Provider, Ravindra LINDSAY Primary Care Provider [phone] Encounter Details Date Type Department Care Team (Late st Contact Info) Description 09/01/2016 Documentation [facility] [place] Family Medicine [address] [place], [place] [phone] Family Medicine, Physician [address] [place] [address] Social History Tobacco Use Types Packs/Day Years [...] on filedocumented in this encounter Care Teams Editor In Chief Newspaper Relationship Specialty Start Date End Date Provider, MD Ravindra [address] [place] [phone] PCP - General Pediatrics 01/26/24 07/23/24 documented as of this encounter
--- OUTSIDE RECORDS SUMMARY | 2025-07-15 00:14 | XMS_ITS | Encounter Summary ---
Author Organization [facility] Address [address] [place] [address] Phone Care Team Providers Care Robotics Technician Name Role Phone Provider, Ravindra LINDSAY Primary Care Provider [phone] Encounter Details Date Type Department Care Team (Late st Contact Info) Description 08/10/2016 Documentation [facility] [place] Family Medicine [address] [place], [place] [phone] Family Medicine, Physician [address] [place] [address] Social History Tobacco Use Types Packs/Day Years [...] filedocumented in this encounter Care Teams Robotics Technician Relationship Specialty Start Date End Date Provider, MD Ravindra [address] [place] [phone] PCP - General Pediatrics 01/26/24 07/23/24 documented as of this encounter
--- OUTSIDE RECORDS SUMMARY | 2025-07-15 00:15 | XMS_ITS | Clinical Summary ---
Author Organization [facility] Address [address] [place] [address] Phone Care Team Providers Care Assignment Clerk Name Role Phone Unavailable Primary Care Provider [...] years. He used his sisters via the [employer] machine last night. He did not sleep [...] Vaccine Completed 11/12/2019, 015 Insurance NON PCC [facility]
--- OUTSIDE RECORDS SUMMARY | 2025-07-15 00:15 | XMS_ITS | Encounter Summary ---
Author Organization [facility] Address [address] [place] [address] Phone Care Team Providers Care Field Naturalist Name Role Phone Provider, Ravindra LINDSAY Primary Care Provider [phone] Encounter Details Date Type Department Care Team (Late st Contact Info) Description 05/14/2013 Documentation [facility] [place] [address] [place], [place] [phone] Family Medicine, Physician [address] [place] [address] Social History Tobacco Use Types Packs/Day Years [...] filedocumented in this encounter Care Teams Field Naturalist Relationship Specialty Start Date End Date Provider, MD Ravindra [address] [place] [phone] PCP - General Pediatrics 01/26/24 07/23/24 documented as of this encounter
--- OUTSIDE RECORDS SUMMARY | 2025-07-15 00:15 | XMS_ITS | Encounter Summary ---
Author Organization [facility] Address [address] [place] [address] Phone Care Team Providers Care Flower Cutter Name Role Phone Provider, Ravindra LINDSAY Primary Care Provider [phone] Encounter Details Date Type Department Care Team (Late st Contact Info) Description 05/14/[address] [facility] [place] [address] [place], [place] [phone] Family Medicine, Physician [address] [place] [address] Social History Tobacco Use Types Packs/Day Years [...] on filedocumented in this encounter Care Teams Flower Cutter Relationship Specialty Start Date End Date Provider, MD Ravindra [address] [place] [phone] PCP - General Pediatrics 01/26/24 07/23/24 documented as of this encounter
[2025-07-15 08:00] LABS: Albumin Globulin Ratio 1.9; Albumin Level 4.7 g/dL (3.5-5.0); Globulin 2.5 g/dL; Total Protein 7.2 g/dL (6.5-8.0)
[2025-07-15 14:53] LABS: Antibody to SS-A Antigen <1.0 NEG AI (<1.0 NEG); Antibody to SS-B Antigen <1.0 NEG AI (<1.0 NEG); SM/Ribonucleoprotein Ab <1.0 NEG AI (<1.0 NEG); Smith Protein <1.0 NEG AI (<1.0 NEG)
== END 2025-07-14 14:52 | disposition home or self-care (01) ==
LOC: HO.LAB 14:51
DX: Z01.84 Encounter for antibody response examination (principal); Z11.59 Encounter for screening for other viral diseases; R76.89 Other specified abnormal immunological findings in serum; R16.0 Hepatomegaly, not elsewhere classified; K76.0 Fatty (change of) liver, not elsewhere classified; R10.11 Right upper quadrant pain; R68.2 Dry mouth, unspecified
CPT/HCPCS: 36415; 81596; 82040; 84155; 86015; 86038; 86200; 86225; 86235; 86431